=== PATIENT | male | born 1960 | race Caucasian/White ===

== ENCOUNTER 2018-04-19 05:19 | Observation (INO) | payer OTHER ==
[2018-04-17 13:43] VITALS: BMI 27.0
[2018-04-19] VITALS (12 sets, daily range): BP systolic 15–151; BP diastolic 87–102; PULSE 60–74; TEMP 36.3–36.9; O2SAT 94–100; Ht 190.5 cm; Wt 100.9 kg
[~2018-04-19] VITALS: Ht 190.5 cm; Wt 100.9 kg
[~2018-04-19 05:19] MED LIST: AMLO5TAB3 PO; ASPCH81X PO; METR-163 PO
[2018-04-19] MEDS ORDERED: LACTATED RINGER'S 1000ML 1,000 ML IV SCH ×2 (06:00→19:00)
[2018-04-19] MEDS: CEFAZOLIN 2000MG IV PUSH 15 ML IV SCH ×2 (06:22→07:10)
[2018-04-19] MEDS ORDERED: LIDOCAINE HCL 2% 2 ML VIAL (20MG/ML) ONE ×2 (06:40→13:10)
[2018-04-19] MEDS ORDERED: FENTANYL CITRATE INJ 50 MCG/1 ML 2 ML VIAL ONE ×5 (06:40→17:04)
[2018-04-19] MEDS ORDERED: MIDAZOLAM HCL 1 MG/ML 2ML VIAL ONE ×2 (06:40→13:11)
[2018-04-19] MEDS ORDERED: PROPOFOL IV EMULSION 10 MG/ML 20 ML VIAL ONE ×3 (06:40→15:20)
--- NOTE | 2018-04-19 07:02 | History & Physical Bridge Note ---
H&P Re-Evaluation Bridge Note: I have examined the patient, reviewed the History & Physical and in the interval since the performance of the History & Physical I have noted the following changes of clinical significance: No changes noted
[2018-04-19] MEDS ORDERED: ROCURONIUM BROMIDE 10 MG/ML 5 ML VIAL ONE (08:04)
[2018-04-19] MEDS ORDERED: ONDANSETRON INJ 2 MG/ML 2 ML VIAL ONE ×2 (08:04→15:20)
[2018-04-19] MEDS ORDERED: GLYCOPYRROLATE INJ 0.2 MG/ML VIAL ONE (08:08)
[2018-04-19] MEDS ORDERED: NEOSTIGMINE METHYLSULFATE 5 MG/5 ML SYR ONE (08:08)
[2018-04-19] MEDS ORDERED: EpHEDrine SULFATE INJ 50 MG/ML AMP IV PRN ×2 (08:15→17:00)
[2018-04-19] MEDS ORDERED: MEPERIDINE HCL 25 MG/ML CARP IV PRN (08:15)
[2018-04-19] MEDS ORDERED: HYDROmorphone INJ 2 MG/ML SYR/VIAL IV PRN (08:15)
[2018-04-19] MEDS ORDERED: LABETALOL HCL IV 5 MG/ML 20ML IV PRN ×2 (08:15→17:00)
[2018-04-19] MEDS ORDERED: FENTANYL CITRATE INJ 50 MCG/1 ML 2 ML VIAL IV PRN ×2 (08:15→17:00)
[2018-04-19] MEDS ORDERED: NALOXONE HCL 0.4 MG/1 ML VIAL/CARP IV PRN ×2 (08:15→17:00)
[2018-04-19] MEDS ORDERED: BELLADONNA/OPIUM SUPP 60 MG SUPP PR ONE ×2 (08:15→08:38)
[2018-04-19] MEDS ORDERED: FLUMAZENIL 0.1 MG/1 ML 10 ML VIAL IV PRN ×2 (08:15→17:00)
[2018-04-19] MEDS ORDERED: ATROPINE SULFATE 0.1 MG/ML 5ML SYR IV PRN ×2 (08:15→17:00)
[2018-04-19] MEDS ORDERED: PHENYLEPHRINE 100MCG/ML 5ML SYR IV PRN (08:15)
[2018-04-19] MEDS ORDERED: ONDANSETRON INJ 2 MG/ML 2 ML VIAL IV PRN ×2 (08:15→17:00)
--- NOTE | 2018-04-19 08:31 | [facility] Operative Report ---
Operative Report Operative Date Apr 19, 2018. Pre-Operative Diagnosis gross hematuria, malignant neoplasm of lateral wall of bladder Post-Operative Diagnosis same Procedure(s) Performed transurethral resection of bladder tumor, medium, bipolar Surgeon Dr. Sara Morfin [facility] Consultant Surgeon(s) none Estimated Blood Loss 10ml Findings sessile tumors left lateral wall and posterior to the left UO Fluids 800mL Specimens A. left lateral wall bladder tumor Drains 20 fr 3- way wheat Anesthesia Type General Complication(s) none Disposition yes Recovery Room / PACU Indications gross hematuria, tumor found on office cysto Description of Procedure Patient was given general GET anesthesia and placed in lithotomy position. His genitals were prepped and draped in sterile fashion. Time out held with team. I placed a 26 fr rigid resectoscope to bladder. The urethra is unremarkable. The prostate is medium but with very high bladder neck. The scope is angled very posteriorly at camera end to angle up into the bladder. This very acute angle makes irrigation difficult. The UOs are uninvolved with tumor. I used the thin bipolar loop and saline irrigation to resect the multiple left lateral wall and left lateral floor and low posterior wall tumors. They are sessile. They measure about 40mm x 40mm in size. The tumors bleed only a little. They are solid. Some have small amounts of necrosis on their surface. I irrigated out the tumor chips and sent for specimen. I rinsed the bladder copiously. He bleeds briskly from the prostate I cauterized here a bit. I think he will bleed enough from the prostate to need some temporary CBI. I left bladder empty and concluded case. I placed a belladonna and opium suppository for post- op pain. CBI was running clear to light pink. He transferred to recovery under my escort, in stable condition. Plan: Home today Pyridium for dysuria x 3 days oral pain meds as needed run cbi in recovery until discharge ASA 3 clean contaminated case ancef antibiotic quality consultant I attest to the content of the Intraoperative Record and any orders documented therein. Any exceptions are noted below.
[2018-04-19] MEDS ORDERED: PHEN-775 PO (08:39)
--- NOTE | 2018-04-19 08:41 | Discharge Instructions ---
Discharge Instructions Date of Service Apr 19, 2018. Admission Reason for Admission: Bladder Tumor Discharge Discharge Diagnosis / Problem: bladder tumors Discharge Goals Goal(s): Improve disease control Activity Recommendations Activity Limitations: resume your previous activity Lifting Limitations: none Exercise/Sports Limitations: as tolerated Shower/Bathe: no limitations Driving or Machine Use: resume 1 day after discharge may return to work on Tuesday04/22/18 . Instructions / Follow-Up Instructions / Follow-Up if urine is bloody, drink extra fluids to rinse out. Current Hospital Diet Patient's current hospital diet: Discharge Diet Recommended Diet: Regular Diet Procedures Procedures Performed: transurethral resection of bladder tumor, medium, bipolar Pending Studies Studies pending at discharge: yes List of pending studies: biopsy Medical Emergencies . Who to Call and When: Medical Emergencies: If at any time you feel your situation is an emergency, please call 911 immediately. . Non-Emergent Contact Non-Emergency issues call your: Urologist ([phone]) Call Non-Emergent contact if: temperature is above 100.5 . . "Provider Documentation" section prepared by Karma Morfin. .
--- NOTE | 2018-04-19 09:19 | Anesthesiology Progress Note ---
Anesthesia Post Op Note Date & Time Apr 19, 2018 at 09:18 Vital Signs Pain Intensity: 2 Vital Signs Past 12 Hours Date Time Temp Pulse Resp B/P (MAP) Pulse Ox O2 Delivery O2 Flow Rate FiO2 04/19/18 09:10 36.1 60 18 146/96 96 Room Air 04/19/18 09:00 60 18 146/92 97 Room Air 04/19/18 08:50 60 14 134/86 100 Oxymask 10 04/19/18 08:40 60 14 133/84 100 Oxymask 10 04/19/18 08:33 36.2 60 15 137/90 100 Oxymask 10 04/19/18 05:48 36.9 63 18 97 Room Air Notes Mental Status: alert / awake / arousable, participated in evaluation Pt Amnestic to Procedure: Yes Nausea / Vomiting: adequately controlled Pain: adequately controlled Airway Patency, RR, SpO2: stable & adequate BP & HR: stable & adequate Hydration State: stable & adequate Anesthetic Complications: no major complications apparent The patient did well. He is awake and stable in the PACU. He has some redness over his L eyebrow likely from the eye tape. He states that it is starting to feel better.
--- NOTE | 2018-04-19 13:36 | History & Physical Bridge Note ---
H&P Re-Evaluation Bridge Note: Patient went to recovery with CBI running well and urine was very light pink. As he recovered his urine turned frankly bloody. CBI then clotted off and nurses efforts to unclog failed. He was developing painful distention of bladder. I irrigated out a very small amount of clot and unobstructed the cbi port as well. The CBI began to run well again but varied from light pink to light red. I suspect he has had a vessel in one of the tumor beds open up. I would like to take him back to OR to remove any clot and cauterize any bleeding areas. I have a lower threshold for hematuria in him due to his cardiac history. I do not want to allow him to become anemic. I have described problem and return to OR versus further observation. He agrees with return to OR I have explained this unanticipated return to OR is considered a major complication and he will have a formal write up and a letter of apology will be sent to him in the mail. He signed consent and had his questions answered to his satisfaction. He had 2 marie crackers and a half can of irma estrada at 9: 30am so we will wait a few more hours to go back.
[2018-04-19] MEDS ORDERED: CEFAZOLIN SOD 1 GM VIAL ONE (15:37)
[2018-04-19] MEDS ORDERED: PROMETHAZINE HCL INJ 12.5 MG in SODIUM CHLORIDE 0.9% 50ML 50 ML IV PRN (17:00)
--- NOTE | 2018-04-19 17:07 | [facility] Operative Report ---
Operative Report Operative Date Apr 19, 2018. Pre-Operative Diagnosis Clot Retention Post-Operative Diagnosis Clot retention;Prostatic bleeding Procedure(s) Performed cystoscopy clot evacuation, fulguration of prostate, wheat Surgeon Navjot Colon And Rectal Surgeon Surgeon(s) none Estimated Blood Loss 200mL Findings 200mL of soft clot in bladder, no bleeding from the turbt sites, prostate b Fluids 800mL Specimens none per surgeon Drains 22 fr 3- way wheat Anesthesia Type General Complication(s) none Disposition yes Recovery Room / PACU Indications Post-op from TURBT he had brisk hematuria and clotted off his cbi catheter. Bedside irrigation failed. We have elected to go back to OR to remove clot, and find and fulgurate bleeding source. Description of Procedure Patient was given LMA general anesthesia and placed in lithotomy position. His genitals were prepped and draped in sterile fashion. I placed a 26 fr resectoscope to the bladder. There is a medium string of clot in urethra and large clot in bladder. I used Hannah syringe to remove the clot from bladder. I removed about 200mL of clot. I examined the bladder tumor biopsy sites first. None are bleeding. I identified the bleeding as coming diffusely from the prostate. The more brisk bleeding is from anterior prostate. I suspect the acute angulation of the scope this morning caused some trauma here. I used thick loop then button to cauterize this area to control the bleeding. I then left him full and placed a 22 fr 3 -way wheat. I started CBI which was clear. He extubated and transferred to recovery room. I will observe him overnight on CBI. I accompanied him to recovery room. ASA 3e clean contaminated case ancef antibiotic division engineer I attest to the content of the Intraoperative Record and any orders documented therein. Any exceptions are noted below.
--- NOTE | 2018-04-19 17:28 | Anesthesiology Progress Note ---
Anesthesia Post Op Note Date & Time Apr 19, 2018 at 17:27 Vital Signs Pain Intensity: 3 Vital Signs Past 12 Hours Date Time Temp Pulse Resp B/P (MAP) Pulse Ox O2 Delivery O2 Flow Rate FiO2 04/19/18 12:45 16 141/94 97 Room Air 04/19/18 11:43 16 139/95 96 Room Air 04/19/18 11:10 36.5 16 137/95 96 Room Air 04/19/18 10:35 36.5 18 142/102 98 Room Air 04/19/18 10:03 36.3 18 140/94 98 Room Air 04/19/18 09:33 36.3 18 150/95 97 Room Air 04/19/18 09:20 60 18 146/101 95 Room Air 04/19/18 09:10 36.1 60 18 146/96 96 Room Air 04/19/18 09:00 60 18 146/92 97 Room Air 04/19/18 08:50 60 14 134/86 100 Oxymask 10 04/19/18 08:40 60 14 133/84 100 Oxymask 10 04/19/18 08:33 36.2 60 15 137/90 100 Oxymask 10 04/19/18 05:48 36.9 63 18 97 Room Air Notes Mental Status: alert / awake / arousable, participated in evaluation Pt Amnestic to Procedure: Yes Nausea / Vomiting: adequately controlled Pain: adequately controlled Airway Patency, RR, SpO2: stable & adequate BP & HR: stable & adequate Hydration State: stable & adequate Anesthetic Complications: no major complications apparent
[2018-04-19] MEDS ORDERED: IV FLUIDS COMPLETED PRN (18:15)
[2018-04-19] MEDS: PHENAZOPYRIDINE HCL 200 MG TAB PO PRN (20:17)
[2018-04-19] MEDS: ACETAMINOPHEN 325 MG TAB PO PRN (20:20)
[2018-04-19] MEDS: SOTALOL HCL 80 MG TAB PO SCH (20:28)
[2018-04-19] MEDS ORDERED: NURSING VERBAL MED ORDER ONE (21:45)
[2018-04-19] MEDS ORDERED: BELLADONNA/OPIUM SUPP 60 MG SUPP PR PRN (21:45)
[2018-04-20 00:02] VITALS: BP 111/72; PULSE 61; TEMP 36.5; O2SAT 94
[2018-04-20] MEDS: PHENAZOPYRIDINE HCL 200 MG TAB PO PRN ×2 (03:26→13:07)
[2018-04-20] MEDS: ACETAMINOPHEN 325 MG TAB PO PRN (03:27)
[2018-04-20 03:48] VITALS: BP 110/66; PULSE 67; TEMP 37; O2SAT 95
[2018-04-20 07:10] VITALS: BP 139/88; PULSE 76; TEMP 36.9; O2SAT 91
--- NOTE | 2018-04-20 07:45 | Progress Note ---
Subjective Date of Service: Apr 20, 2018. Subjective Pt evaluation today including: conversation w/ patient, physical exam Voiding: wheat catheter in place no problems with cbi overnight. Had some redness to efflux after ambulation and BMs last night but this am no blood at all. Still having burning in prostate urethra. Passed a medium clot last night along side the catheter. Having gas pains in abdomen today. Feels otherwise well. Review of Systems Constitutional: No fever, No chills, No sweats ENT: No sore throat Respiratory: No cough, No shortness of breath Cardiac: No chest pain, No palpitations Male : + dysuria, + hematuria Objective Vital Signs Date Time Temp Pulse Resp B/P (MAP) Pulse Ox O2 Delivery O2 Flow Rate FiO2 04/20/18 07:10 36.9 76 15 139/88 (105) 91 Room Air 04/20/18 03:48 37.0 67 19 110/66 (81) 95 Room Air 04/20/18 00:02 36.5 61 18 111/72 (85) 94 Room Air 04/19/18 23:30 Room Air 04/19/18 20:24 36.5 71 18 151/93 (112) 96 Room Air 04/19/18 19:47 36.8 70 18 142/93 (109) 94 Room Air 04/19/18 19:11 36.5 65 18 144/88 (106) 95 Room Air 04/19/18 18:25 36.4 60 18 142/89 (106) 96 Room Air 04/19/18 17:50 36.4 74 16 135/87 (103) 100 Nasal Cannula 2.0 04/19/18 17:50 100 Nasal Cannula 2.0 04/19/18 17:50 100 Nasal Cannula 2.0 04/19/18 17:35 36.4 60 16 135/87 100 Nasal Cannula 2 04/19/18 17:25 60 16 139/98 99 Nasal Cannula 2 04/19/18 17:15 60 15 141/96 100 Nasal Cannula 2 04/19/18 17:05 60 12 136/90 99 Oxymask 10 04/19/18 16:55 36.6 60 15 132/86 100 Oxymask 10 04/19/18 16:49 36.6 60 14 130/86 99 Oxymask 10 04/19/18 12:45 16 141/94 97 Room Air 8/15/18 11:43 16 139/95 96 Room Air 04/19/18 11:10 36.5 16 137/95 96 Room Air 04/19/18 10:35 36.5 18 142/102 98 Room Air 04/19/18 10:03 36.3 18 140/94 98 Room Air 04/19/18 09:33 36.3 18 150/95 97 Room Air 04/19/18 09:20 60 18 146/101 95 Room Air 04/19/18 09:10 36.1 60 18 146/96 96 Room Air 04/19/18 09:00 60 18 146/92 97 Room Air 04/19/18 08:50 60 14 134/86 100 Oxymask 10 04/19/18 08:40 60 14 133/84 100 Oxymask 10 04/19/18 08:33 36.2 60 15 137/90 100 Oxymask 10 Physical Exam General Appearance: WD/WN, no apparent distress ENT: hearing grossly normal Respiratory/Chest: no respiratory distress Extremities: + pertinent finding (we ambulated the length of the hensley twice, no difficulty) Neurologic/Psychiatric: alert, normal mood/affect, oriented x 3 Skin: normal color, warm/dry, no rash Comments: wheat in placed with scant blood along side catheter. Has cbi running very slow drip and efflux is yellow pyridium stained. Assessment and Plan bladder cancer POD#1 turbt path pending clot retention- upon return to OR was found to be prostate bleeding in origin. Was fulgurated and the CBI seems to have kept him clear. We will cap the CBI port and observe another 2-3 hours. If still clear then discharge linda with wheat for one more day. If bloody again restart CBI. HTN- on home regimen meds. Continued [facility] stay due to: voiding difficulties Discharge planning: home
[2018-04-20] MEDS: SOTALOL HCL 80 MG TAB PO SCH (08:04)
[2018-04-20] MEDS ORDERED: AMLODIPINE BESYLATE 5 MG TAB PO SCH (09:00)
--- NOTE | 2018-04-20 10:12 | Anesthesiology Progress Note ---
Anesthesia Post Op Note Date & Time Apr 20, 2018 at 10:12 Vital Signs Pain Intensity: 3.0 Vital Signs Past 12 Hours Date Time Temp Pulse Resp B/P (MAP) Pulse Ox O2 Delivery O2 Flow Rate FiO2 04/20/18 07:10 36.9 76 15 139/88 (105) 91 Room Air 04/20/18 03:48 37.0 67 19 110/66 (81) 95 Room Air 04/20/18 00:02 36.5 61 18 111/72 (85) 94 Room Air 04/19/18 23:30 Room Air Notes Mental Status: alert / awake / arousable, participated in evaluation Pt Amnestic to Procedure: Yes Nausea / Vomiting: adequately controlled Pain: adequately controlled Airway Patency, RR, SpO2: stable & adequate BP & HR: stable & adequate Hydration State: stable & adequate Anesthetic Complications: no major complications apparent
[2018-04-20 10:34] VITALS: BP 107/69; PULSE 71; TEMP 36.8; O2SAT 91
--- NOTE | 2018-04-20 11:56 | Discharge Instructions ---
Discharge Instructions Date of Service Apr 20, 2018. Admission Reason for Admission: Clot Retention Of Urine Discharge Discharge Diagnosis / Problem: clot retention Discharge Goals Goal(s): Improve function Activity Recommendations Activity Limitations: per Instructions/Follow-up section Lifting Limitations: no more than 25 pounds (for the next 5 days ) . Instructions / Follow-Up Instructions / Follow-Up remove the wheat catheter tomorrow at home at 10am. Cut the balloon port and allow water to drain out. Slide catheter out slowly expect some bleeding after cath removal. call office [phone] with any problems Current Hospital Diet Patient's current hospital diet: AHA Diet (Heart Healthy) Discharge Diet Recommended Diet: AHA Diet (Heart Healthy) Fluid Restriction: None Procedures Procedures Performed: Cystoscopy; clot evacuation;cautery of prostate Pending Studies Studies pending at discharge: yes List of pending studies: bladder biposies Medical Emergencies . Who to Call and When: Medical Emergencies: If at any time you feel your situation is an emergency, please call 911 immediately. . Non-Emergent Contact Non-Emergency issues call your: Urologist ([phone]) Call Non-Emergent contact if: temperature is above 100.5 . . "Provider Documentation" section prepared by Karma Morfin. .
--- NOTE | 2018-04-20 12:33 | Discharge Summary ---
Discharge Summary Date of Service Apr 20, 2018. Discharge Summary Admission Date: Apr 19, 2018 at 16:57 Discharge Date: Apr 20, 2018 Discharge Disposition: Home Principal Diagnosis: clot retention Procedures: TURBT morning 04/19/18 then Cysto clot evacuation with fulguration of prostate afternoon 04/19/18 Pending Studies/Follow-Up: bladder biposy path pending Medication Reconciliation New Medications: Phenazopyridine Hcl (Pyridium) 200 Mg Tab 200 MG PO TID PRN for Bladder pain, #9 TAB Continued Medications: Amlodipine (Norvasc) 5 Mg Tab 5 MG PO QAM, TAB Aspirin (Aspirin Chewable) 81 Mg Chew 81 MG PO QPM, TAB Fish Oil (Magnolia-3) 1 Ea Cap 1 CAP PO QPM, CAP Metronidazole (Flagyl) 500 Mg Tab 500 MG PO BID, TAB Sotalol Hcl (Sotalol Hcl) 80 Mg Tab 40 MG PO BID, TAB Admission Information HPI (per Admitting provider): Patient had planned day surgery TURBT. He was sent to recovery room for a few hours of CBI to control some prostate bleeding. He began to bleed briskly in recovery about 2 hours after surgery and clotted of the catheter. He was taken back [facility] and had clot evacuated from bladder and prostate cuaterized. He was kept overnight for CBI and did well. Physical Exam (per Admitting): Tall thin ext- has varicose veins in legs, Chest- no respiratory distress, no accessory muscle use oriented x 3 Hospital Course Patient had planned day surgery TURBT. He was sent to recovery room for a few hours of CBI to control some prostate bleeding. He began to bleed briskly in recovery about 2 hours after surgery and clotted of the catheter. He was taken back [facility] and had clot evacuated from bladder and prostate cuaterized. He was kept overnight for CBI and did well. Irrigation was discontinued on 04/20/18 and he did not rebleed. He was discharged with wheat Total time spent on discharge = 30 minutes This includes examination of the patient, discharge planning, medication reconciliation, and communication with other providers. Discharge Instructions remove catheter mid morning tomorrow take pyridium prn burning we will call with path results and follow up visits Additional Copies To Germaine Thomason D.O.
[2018-04-20 14:11] VITALS: BP 107/69; PULSE 71; TEMP 36.8; O2SAT 91
[2018-04-26] MEDS ORDERED: SOTA80TA PO (13:42)
[2018-04-26] MEDS ORDERED: OMEG10007 PO (13:42)
[2018-04-28] MEDS ORDERED: PROBCAP3 OR (10:54)
== END 2018-04-20 15:06 | disposition home or self-care (01) ==
LOC: C.ACU 05:19 → C.MSW 16:57 → ENRESERV 17:19
PROVIDERS: ADMIT Urology; ATTEND Urology
DX: C67.2 Malignant neoplasm of lateral wall of bladder (principal); N32.89 Other specified disorders of bladder; I25.10 Atherosclerotic heart disease of native coronary artery without angina pectoris; I10 Essential (primary) hypertension; K51.90 Ulcerative colitis, unspecified, without complications; I25.2 Old myocardial infarction; Z95.0 Presence of cardiac pacemaker; Z87.891 Personal history of nicotine dependence; Z79.82 Long term (current) use of aspirin

== ENCOUNTER 2018-04-26 15:09 | Observation (INO) | payer OTHER ==
[~2018-04-26] VITALS: Ht 190.5 cm; Wt 96.9 kg
[~2018-04-26 15:09] MED LIST changes: +OMEG10007 PO; +PHEN-775 PO; +SOTA80TA PO
[2018-04-26] MEDS ORDERED: SODIUM CHLORIDE 0.9% 1000ML 500 ML IV STA (15:41)
[2018-04-26] MEDS ORDERED: OPTIRAY 320 IV PRN (15:45)
[2018-04-26 16:03] LABS: BASO % 1.2 %; BASO ABS # 0.09 K/uL (0-0.2); EOS % 4.4 %; EOS ABS # 0.34 K/uL (0-0.5); HEMATOCRIT 42.5 % (42-52); HEMOGLOBIN 15.2 g/dL (14.0-18.0); IG# 0.08 K/uL (0.00-0.02); LYMPH % 24.4 %; LYMPH ABS # 1.89 K/uL (1.2-3.4); MEAN CELL VOLUME 88.9 fL (80-100); MEAN CORPUSCULAR HEMOGLOBIN 31.8 pg (25-34); MEAN CORPUSCULAR HGB CONC 35.8 g/dl (32-36); MEAN PLATELET VOLUME 9.1 fL (7.4-10.4); MONO % 8.2 %; MONO ABS # 0.64 K/uL (0.11-0.59); NEUT % 60.8 %; NEUT ABS # 4.72 K/uL (1.4-6.5); PLATELET COUNT 260 K/uL (130-400); RED CELL DISTRIBUTION WIDTH CV 14.2 % (11.5-14.5); RED CELL DISTRIBUTION WIDTH SD 46.2 fL (36.4-46.3); WHITE BLOOD COUNT 7.76 K/uL (4.8-10.8)
[2018-04-26 16:11] LABS: PTT PATIENT 24.1 SECONDS (21.0-31.0)
[2018-04-26 16:22] LABS: ALBUMIN 3.8 gm/dl (3.4-5.0); CALCIUM 9.7 mg/dl (8.5-10.1); CREATININE 1.01 mg/dl (0.60-1.40); POTASSIUM 4.5 mmol/L (3.5-5.1); TOTAL PROTEIN 9.1 gm/dl (6.4-8.2)
[2018-04-26] MEDS ORDERED: MTR500 PO (16:54)
[2018-04-26] MEDS ORDERED: NRV/5 PO (16:54)
[2018-04-26] MEDS ORDERED: ASPI81TA28 PO (16:55)
--- NOTE | 2018-04-26 17:31 | DIAGNOSTIC IMAGING REPORT ---
ABD/PELVIS IV CONTRAST ONLY CLINICAL HISTORY: 58 years-old Male presenting with ABD PAIN, POSS OBSTRUCTION, IV CONTRAST ONLY. TECHNIQUE: Multidetector CT of the abdomen and pelvis was performed after the administration of oral and intravenous contrast. IV contrast: 115 mL of Optiray 320. A dose lowering technique was used consistent with the principles of ALARA (as low as reasonably achievable). COMPARISON: None. CT DOSE (mGy.cm): The estimated cumulative dose is 461.71 mGy.cm. FINDINGS: Applications Consultant topogram: Surgical clips project over the pelvis, possibly indicating prostatectomy. Pacer wire projects over the right ventricle. Prosthetic aortic valve. Median sternotomy wires. Lung bases: Dependent consolidation and bandlike opacity in the posterior basal right lower lobe, possibly cicatrizing atelectasis. Dependent changes in the left lung suggests atelectasis. Solid 4 mm left lower lobe nodule (series 3 image 30). Punctate subpleural solid right lower lobe nodule (series 3 image 21). A pacer wire enters the right ventricular apex and a transmyocardial approach from the pericardial fat. Normal heart size. No pericardial or pleural effusion. Liver: Normal morphology. No liver lesion. Small portal vein aneurysm or flash filling hemangioma suggested in segment 8 (series 3 image 43). Patent hepatic vasculature. Biliary: No intrahepatic or extrahepatic biliary ductal dilatation. Gallbladder decompressed. Pancreas: Normal. Spleen: Normal. Adrenal glands: Normal. Kidneys and ureters: Normal. Few small subcentimeter hypodensities likely cysts. No hydronephrosis. Ureters nondistended. Bladder: Incompletely evaluated secondary to underdistention. Pelvic organs: Evidence of a transurethral resection of the prostate defect. Prostate enlarged. 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 Moderate stool burden in the pouch. A diverticulum or blind-ending of a section of the pouch is noted (series 3 image 329). No associated inflammatory change. The bowel upstream to the pouch is only mildly distended. There is slight wall thickening at the proximal most portion of the pouch (series 3 image 317). No complete bowel obstruction. A second anastomosis is evident in the right mid abdomen. No upstream distention to suggest obstruction at this site. Peritoneal cavity: No free fluid or intraperitoneal gas. Lymph nodes: No enlarged lymph nodes in the abdomen or pelvis. Vasculature: Atherosclerosis of the normal caliber abdominal aorta. IVC patent. Abdominal wall: Postsurgical changes of the infraumbilical abdominal wall. Musculoskeletal: Degenerative changes of the spine. Bilateral pars defects of L5 with osseous neural foraminal narrowing of L5-S1. IMPRESSION: 1. Postsurgical changes of total proctocolectomy. With ileal pouch anal anastomosis. Moderate stool burden in the pouch could suggest a partial low-grade or functional obstruction at the anal anastomosis. Additionally, small bowel wall thickening at the proximal most portion of the pouch suggest mild pouchitis or a stricture given the mild upstream small bowel distention. No complete bowel obstruction. The more proximal small bowel anastomosis is patent. 2. Evidence of prior TURP with prostatomegaly. 3. Solid 4 mm left lower lobe pulmonary nodule. Follow-up per Donnie Society 2017 recommendations below. Please refer to below summary of Fleischner Society 2017 recommendations for follow-up of incidental CT nodules (H Betty, et al. Guidelines for management of incidental pulmonary nodules detected on CT images: From the Fleischner Society 2017. Radiology 2017; 284: 228-243.) SOLID NODULES Single nodule; size < 6 mm * Low risk patients: No routine follow-up * High risk patients: Optional CT at 12 months Single nodule; size 6-8 mm * Low risk patients: CT at 6-12 months, then consider CT at 18-24 months * High risk patients: CT at 6-12 months, then at 18-24 months Single nodule; size > 8 mm * Either low or high risk patients: Considered CT at 3 months, PET/CT, or tissue sampling Multiple nodules; size < 6 mm * Low risk patients: No routine follow up * High risk patients: Optional CT at 12 months Multiple nodules; size 6-8 mm * Low risk patients: CT at 3-6 months, then consider CT at 18-24 months * High risk patients: CT at 3-6 months, then at 18-24 months Multiple nodules; size > 8 mm * Low risk patients: CT at 3-6 months, then consider at 18-24 months * High risk patients: CT at 3-6 months, then at 18-24 months SUBSOLID NODULES Single ground-glass nodule * Nodule size < 6 mm: No routine follow-up * Nodule size > or = 6 mm: CT at 6-12 months to confirm persistence, then CT every 2 years until 5 years Single part-solid nodule * Nodule size < 6 mm: No routine follow-up * Nodules size > or = 6 mm: CT at 3-6 months to confirm persistence. If unchanged and solid component remains < 6 mm, annual CT should be performed for 5 years Multiple nodules * Nodule size < 6 mm: CT at 3-6 months. If stable, consider CT at 2 and 4 years. * Nodules size > or = 6 mm: CT at 3-6 months. Subsequent management based on the most suspicious nodule(s) NOTE: 1) These guidelines apply to incidental nodules. These guidelines do NOT apply to patients younger than 35 years, immunocompromised patients, or patients with cancer. 2) Risk categories: * Low risk patients: Minimal or absent history of smoking and/or other known risk factors * High risk patients: History of smoking, exposure to other carcinogens, emphysema, fibrosis, upper lobe location, family history of lung cancer, etc. 3) If a nodule up to 8 mm is partly solid or is ground glass, further follow-up is required after 24 months to exclude possible slow growing adenocarcinoma. Electronically signed by: Anthony Lawton M.D. 04/26/2018 5:30 PM Dictated Date/Time: 04/26/2018 5:10 PM
[2018-04-26] MEDS ORDERED: ACETAMINOPHEN 325 MG TAB PO PRN (18:30)
[2018-04-26] MEDS ORDERED: ONDANSETRON INJ 2 MG/ML 2 ML VIAL IV PRN (18:30)
[2018-04-26 18:41] VITALS: O2SAT 98; BMI 26.7
--- NOTE | 2018-04-26 18:42 | EMERGENCY ROOM VISIT NOTE ---
History Report prepared by Basilio: Ventura Porras Under the Supervision of: Dr. Sammy Austin M.D. First contact with patient: 15:36 Chief Complaint: REFERRED BY DOCTOR Stated Complaint: BOWERL OBSTRUCTION History of Present Illness The patient is a 58 year old male who presents to the Emergency Room after being sent by his doctor for a possible bowel obstruction with persistent abdominal pain. The patient reports that he had all of his large intestine removed several years ago and has been experiencing flare-ups every 3 or 4 years since. He states that 6 or 7 years ago he had a fistula removed, and notes his flare-ups have been more frequent since then. He reports that 7 days ago on this past Tuesday, he was admitted to the hospital, diagnosed with bladder cancer, underwent surgery, and left at 15:00 on . The patient states that he has since been experiencing abdominal pain, with the severity being 4/10 at its worst. He reports that he received an X-ray this week, and was instructed to report to the ER. He reports that he has been passing gas and having bowel movements, but notes that he is eating less. He states that there is some burning with urination, and notes that today he felt like he was " peeing himself." He reports that he has been intermittently been experiencing hot flashes and chills. He states that he has also been feeling nauseous and vomited 3-4 times four nights ago. The patient reports that he has a pacemaker. He states that he is currently on Flagyl. Source of History: patient Onset: referred to ER today Position: abdomen Symptom Intensity: 4/10 at worst Quality: other (abdominal pain) Timing: other (persistent) Associated Symptoms: + chills, + nausea, + vomiting (3 or 4 nights ago), + urinary symptoms (burning with urination, today felt like he was "peeing himself ") Review of Systems See HPI for pertinent positives & negatives. A total of 10 systems reviewed and were otherwise negative. Past Medical & Surgical Medical Problems: (1) Asthma (2) Bladder cancer (3) Clot retention of urine (4) Constipation (5) Hypertension (6) Pacemaker (7) Pouchitis (8) Pulmonary embolism Family History non-contributory Social History Smoking Status: Former Smoker Alcohol Use: occasionally Current/Historical Medications Scheduled Amlodipine Besylate (Amlodipine Besylate), 5 MG PO QAM Aspirin (Aspirin Ec), 81 MG PO QPM Fish Oil ([place]-3), 1 CAP PO QPM Metronidazole (Metronidazole), 500 MG PO BID Sotalol Hcl (Sotalol Hcl), 40 MG PO BID Scheduled PRN Phenazopyridine Hcl (Pyridium), 200 MG PO TID PRN for Bladder pain Allergies Coded Allergies: Atorvastatin (Verified Allergy, Intermediate, HIVES, 04/19/18) Plasma Protein Fraction (Verified Allergy, Intermediate, RASH, 04/19/18) Mesalamine (Verified Adverse Reaction, Intermediate, GI SYMPTOMS, 04/19/18) Physical Exam Vital Signs Date Time Temp Pulse Resp B/P (MAP) Pulse Ox O2 Delivery O2 Flow Rate FiO2 04/26/18 17:24 66 18 118/68 98 Room Air 04/26/18 15:28 36.6 75 20 122/86 98 Room Air Physical Exam GENERAL: Patient is in no acute distress. HEENT: No acute trauma, normocephalic atraumatic, mucous membranes moist, no nasal congestion, no scleral icterus. NECK: No stridor, no adenopathy, no meningismus, trachea is midline. LUNGS: Clear to auscultation bilaterally, no wheeze, no rhonchi, breath sounds equal. HEART: Without murmurs gallops or rubs, regular rate and rhythm. ABDOMEN: Soft, tender in mid-lower abdomen/pelvis and right lower quadrant, bowel sounds positive, no hernias, no peritonitis. EXTREMITIES: No cyanosis or edema, full range of motion of all the joints without pain or difficulty, no signs for acute trauma. NEUROLOGIC: Oriented x 3, no acute motor or sensory deficits, no focal weakness. SKIN: No rash, no jaundice, no diaphoresis. Medical Decision & Procedures ER Provider Diagnostic Interpretation: Radiology results as stated below per my review and radiologist interpretation: ABD/PELVIS IV CONTRAST ONLY CLINICAL HISTORY: 58 years-old Male presenting with ABD PAIN, POSS OBSTRUCTION, IV CONTRAST ONLY. TECHNIQUE: Multidetector CT of the abdomen and pelvis was performed after the administration of oral and intravenous contrast. IV contrast: 115 mL of Optiray 320. A dose lowering technique was used consistent with the principles of ALARA (as low as reasonably achievable). COMPARISON: None. CT DOSE (mGy.cm): The estimated cumulative dose is 461.71 mGy.cm. FINDINGS: [employer] topogram: Surgical clips project over the pelvis, possibly indicating prostatectomy. Pacer wire projects over the right ventricle. Prosthetic aortic valve. Median sternotomy wires. Lung bases: Dependent consolidation and bandlike opacity in the posterior basal right lower lobe, possibly cicatrizing atelectasis. Dependent changes in the left lung suggests atelectasis. Solid 4 mm left lower lobe nodule (series 3 image 30). Punctate subpleural solid right lower lobe nodule (series 3 image 21). A pacer wire enters the right ventricular apex and a transmyocardial approach from the pericardial fat. Normal heart size. No pericardial or pleural effusion. Liver: Normal morphology. No liver lesion. Small portal vein aneurysm or flash filling hemangioma suggested in segment 8 (series 3 image 43). Patent hepatic vasculature. Biliary: No intrahepatic or extrahepatic biliary ductal dilatation. Gallbladder decompressed. Pancreas: Normal. Spleen: Normal. Adrenal glands: Normal. Kidneys and ureters: Normal. Few small subcentimeter hypodensities likely cysts. No hydronephrosis. Ureters nondistended. Bladder: Incompletely evaluated secondary to underdistention. Pelvic organs: Evidence of a transurethral resection of the prostate defect. Prostate enlarged. 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 Moderate stool burden in the pouch. A diverticulum or blind-ending of a section of the pouch is noted (series 3 image 329). No associated inflammatory change. The bowel upstream to the pouch is only mildly distended. There is slight wall thickening at the proximal most portion of the pouch (series 3 image 317). No complete bowel obstruction. A second anastomosis is evident in the right mid abdomen. No upstream distention to suggest obstruction at this site. Peritoneal cavity: No free fluid or intraperitoneal gas. Lymph nodes: No enlarged lymph nodes in the abdomen or pelvis. Vasculature: Atherosclerosis of the normal caliber abdominal aorta. IVC patent. Abdominal wall: Postsurgical changes of the infraumbilical abdominal wall. Musculoskeletal: Degenerative changes of the spine. Bilateral pars defects of L5 with osseous neural foraminal narrowing of L5-S1. IMPRESSION: 1. Postsurgical changes of total proctocolectomy. With ileal pouch anal anastomosis. Moderate stool burden in the pouch could suggest a partial low-grade or functional obstruction at the anal anastomosis. Additionally, small bowel wall thickening at the proximal most portion of the pouch suggest mild pouchitis or a stricture given the mild upstream small bowel distention. No complete bowel obstruction. The more proximal small bowel anastomosis is patent. 2. Evidence of prior TURP with prostatomegaly. 3. Solid 4 mm left lower lobe pulmonary nodule. Follow-up per Donnie Society 2017 recommendations below. Please refer to below summary of Fleischner Society 2017 recommendations for follow-up of incidental CT nodules (Melanie Hernández et al. Guidelines for management of incidental pulmonary nodules detected on CT images: From the Fleischner Society 2017. Radiology 2017; 284: 228-243.) SOLID NODULES Single nodule; size < 6 mm * Low risk patients: No routine follow-up * High risk patients: Optional CT at 12 months Single nodule; size 6-8 mm * Low risk patients: CT at 6-12 months, then consider CT at 18-24 months * High risk patients: CT at 6-12 months, then at 18-24 months Single nodule; size > 8 mm * Either low or high risk patients: Considered CT at 3 months, PET/CT, or tissue sampling Multiple nodules; size < 6 mm * Low risk patients: No routine follow up * High risk patients: Optional CT at 12 months Multiple nodules; size 6-8 mm * Low risk patients: CT at 3-6 months, then consider CT at 18-24 months * High risk patients: CT at 3-6 months, then at 18-24 months Multiple nodules; size > 8 mm * Low risk patients: CT at 3-6 months, then consider at 18-24 months * High risk patients: CT at 3-6 months, then at 18-24 months SUBSOLID NODULES Single ground-glass nodule * Nodule size < 6 mm: No routine follow-up * Nodule size > or = 6 mm: CT at 6-12 months to confirm persistence, then CT every 2 years until 5 years Single part-solid nodule * Nodule size < 6 mm: No routine follow-up * Nodules size > or = 6 mm: CT at 3-6 months to confirm persistence. If unchanged and solid component remains < 6 mm, annual CT should be performed for 5 years Multiple nodules * Nodule size < 6 mm: CT at 3-6 months. If stable, consider CT at 2 and 4 years. * Nodules size > or = 6 mm: CT at 3-6 months. Subsequent management based on the most suspicious nodule(s) NOTE: 1) These guidelines apply to incidental nodules. These guidelines do NOT apply to patients younger than 35 years, immunocompromised patients, or patients with cancer. 2) Risk categories: * Low risk patients: Minimal or absent history of smoking and/or other known risk factors * High risk patients: History of smoking, exposure to other carcinogens, emphysema, fibrosis, upper lobe location, family history of lung cancer, etc. 3) If a nodule up to 8 mm is partly solid or is ground glass, further follow-up is required after 24 months to exclude possible slow growing adenocarcinoma. Electronically signed by: Anthony Lawton M.D. 04/26/2018 5:30 PM Dictated Date/Time: 04/26/2018 5:10 PM Laboratory Results 04/26/18 15:54 Red Blood Count 4.78, Mean Corpuscular Volume 88.9, Mean Corpuscular Hemoglobin 31.8, Mean Corpuscular Hemoglobin Concent 35.8, Mean Platelet Volume 9.1, Neutrophils (%) (Auto) 60.8, Lymphocytes (%) (Auto) 24.4, Monocytes (%) (Auto) 8.2, Eosinophils (%) (Auto) 4.4, Basophils (%) (Auto) 1.2, Neutrophils # (Auto) 4.72, Lymphocytes # (Auto) 1.89, Monocytes # (Auto) 0.64, Eosinophils # (Auto) 0.34, Basophils # (Auto) 0.09 04/26/18 15:54 Test 04/26/18 15:54 04/26/18 16:31 White Blood Count 7.76 K/uL (4.8-10.8) Red Blood Count 4.78 M/uL (4.7-6.1) Hemoglobin 15.2 g/dL (14.0-18.0) Hematocrit 42.5 % (42-52) Mean Corpuscular Volume 88.9 fL (80-100) Mean Corpuscular Hemoglobin 31.8 pg (25-34) Mean Corpuscular Hemoglobin Concent 35.8 g/dl (32-36) Platelet Count 260 K/uL (130-400) Mean Platelet Volume 9.1 fL (7.4-10.4) Neutrophils (%) (Auto) 60.8 % Lymphocytes (%) (Auto) 24.4 % Monocytes (%) (Auto) 8.2 % Eosinophils (%) (Auto) 4.4 % Basophils (%) (Auto) 1.2 % Neutrophils # (Auto) 4.72 K/uL (1.4-6.5) Lymphocytes # (Auto) 1.89 K/uL (1.2-3.4) Monocytes # (Auto) 0.64 K/uL (0.11-0.59) Eosinophils # (Auto) 0.34 K/uL (0-0.5) Basophils # (Auto) 0.09 K/uL (0-0.2) RDW Standard Deviation 46.2 fL (36.4-46.3) RDW Coefficient of Variation 14.2 % (11.5-14.5) Immature Granulocyte % (Auto) 1.0 % Immature Granulocyte # (Auto) 0.08 K/uL (0.00-0.02) Prothrombin Time 10.5 SECONDS (9.0-12.0) Prothromb Time International Ratio 1.0 (0.9-1.1) Activated Partial Thromboplast Time 24.1 SECONDS (21.0-31.0) Partial Thromboplastin Ratio 0.9 Anion Gap 7.0 mmol/L (3-11) Est Creatinine Clear Calc Drug Dose 96.4 ml/min Estimated GFR () 95.3 Estimated GFR (Non- 82.2 BUN/Creatinine Ratio 22.5 (10-20) Calcium Level 9.7 mg/dl (8.5-10.1) Magnesium Level 2.3 mg/dl (1.8-2.4) Total Bilirubin 0.7 mg/dl (0.2-1) Aspartate Amino Transf (AST/SGOT) 22 U/L (15-37) Alanine Aminotransferase (ALT/SGPT) 25 U/L (12-78) Alkaline Phosphatase 141 U/L (45-117) Total Protein 9.1 gm/dl (6.4-8.2) Albumin 3.8 gm/dl (3.4-5.0) Globulin 5.3 gm/dl (2.5-4.0) Albumin/Globulin Ratio 0.7 (0.9-2) Lipase 166 U/L (73-393) Urine Color DK YELLOW Urine Appearance CLEAR (CLEAR) Urine pH 5.0 (4.5-7.5) Urine Specific [place] 1.023 (1.000-1.030) Urine Protein 2+ (NEG) Urine Glucose (UA) NEG (NEG) Urine Ketones NEG (NEG) Urine Occult Blood 3+ (NEG) Urine Nitrite NEG (NEG) Urine Bilirubin NEG (NEG) Urine Urobilinogen NEG (NEG) Urine Leukocyte Esterase MODERATE (NEG) Urine WBC (Auto) >30 /hpf (0-5) Urine RBC (Auto) >30 /hpf (0-4) Urine Hyaline Casts (Auto) 1-5 /lpf (0-5) Urine Epithelial Cells (Auto) 10-20 /lpf (0-5) Urine Bacteria (Auto) NEG (NEG) Laboratory results reviewed by me. Medications Administered Medications (Trade) Dose Ordered Sig/Higinio Route Start Time Stop Time Status Last Admin Dose Admin Sodium Chloride 500 ml @ 999 mls/hr Q31M STAT IV 04/26/18 15:41 04/26/18 16:11 DC 04/26/18 15:41 999 MLS/HR ECG Per My Interpretation Indication: abdominal pain Rate (beats per minute): 83 Rhythm: other (AV pacemaker) Findings: other (LVH. No PVCs.) ED Course 1537: The patient was evaluated in room B7. A complete history and physical exam was performed. 1541: Ordered Sodium Chloride 500 ml @ 999 mls/hr IV 1747: I consulted Dr. Tavon WELDON. He recommends a stool sample for C-Diff and blood cultures. 175: I consulted Beba Atwood PA-C: [facility] Hospitalist. She will reevaluate the patient for hospitalization. Medical Decision Differential diagnosis: UTI, bladder rupture, pouchitis, bowel obstruction, ileus, electrolyte imbalance, anemia, post surgical pain There is no leukocytosis or worrisome anemia. No significant electrolyte abnormality, kidney failure or hepatitis. Urinalysis shows possible infection versus changes just from the recent bladder surgery. Urine culture and blood cultures are pending. Stool C. difficile testing is pending. Abdominal and pelvis CT shows pouchitis with some stool in the pouch causing a potential partial bowel obstruction. No evidence for abscess, no free air seen. No surgical bowel obstruction seen. EKG shows an AV pacemaker. There was no pancreatitis. The patient received IV saline. He has been resting fairly comfortably. I spoke with GI, a hospital stay/observation was advised given his findings and recent history. I did speak with the patient and case management. The on-call hospitalist was counseled. The cause for all his symptoms at this point is not clear, further workup is warranted. Medication Reconcilliation Current Medication List: was personally reviewed by me Blood Pressure Screening Patient's blood pressure: Normal blood pressure Blood pressure disposition: Did not require urgent referral Consults Time Called: 173 Consulting Physician: Dr. Tavon WELDON Returned Call: [address] Tavon WELDON. He recommends a stool sample for C-Diff and blood cultures. Additional Consults: Time Called: 175 Consulted Physician: Beba Atwood PA-C: [facility] Returned Call: 175 Additional Comments: I consulted Beba Atwood PA-C: [facility]. She will reevaluate the patient for hospitalization. Impression Primary Impression: Lower abdominal pain Additional Impressions: Pouchitis Partial bowel obstruction Scribe Attestation The scribe's documentation has been prepared under my direction and personally reviewed by me in its entirety. I confirm that the note above accurately reflects all work, treatment, procedures, and medical decision making performed by me. Departure Information Dispostion Being Evaluated By Hospitalist Referrals Germaine Thomason D.O. (PCP) Patient Instructions My [facility] Problem Qualifiers
[2018-04-26] MEDS ORDERED: IV FLUIDS COMPLETED PRN (19:00)
[2018-04-26 19:54] VITALS: BP 146/97; PULSE 61; TEMP 36.6; O2SAT 96
--- NOTE | 2018-04-26 20:25 | History and Physical ---
History & Physical Date & Time of Service: Apr 26, 2018 at 19:59 Chief Complaint: Constipation,Pouchitis Primary Care Physician: Germaine Thomason D.O. History of Present Illness This is a 58 year old male with significant PMH of IBD-ulcerative colitis, hx of total proctocolectomy with ileal-anal anastomosis, Afib, hx of AVR, hx of pacemaker, HTN, s/p TURBT on 04/19/[address] Morfin who presents to [facility] secondary to abdominal discomfort, increased flatus x 2 days. Also of note patient currently taking flagyl 500mg po bid until 04/29 for Pouchitis. Patient states ever since being discharged s/p TURBT he has had increased abdominal distention and pain. Pain located in lower abdomen, constant, waxes and wanes in severity, 3/10 at worse. Symptoms made better with pepto bismal, imodium and made worse with increased gas and laying on right side. Had similar sx in past. Last BM was few minutes prior to our visit, he state it was like, "cow geremias," which is usual for him. Pain has lessened. Last meal was at 7am this a.m. No appetite. Denies f/c/s, chest pain, sob, dizziness, lightheaded, emesis, diarrhea. He does get occasional dysuria since procedure. He states he is to go to [facility] for possible bladder resection. In ED CBC unremarkable, BMP revealed sodium 135, BUN 23, current 1.01, glucose 108, alk phos 141. CT scan of the pelvis showed Moderate stool burden in the pouch which suggest a partial obstruction at the anal anastomosis as well as pouchitis. Blood and stool cultures still pending. Past Medical/Surgical History Medical Problems: (1) Asthma Status: Chronic (2) Atrial fibrillation Status: Chronic (3) Bladder cancer Status: Chronic (4) BPH (benign prostatic hyperplasia) Status: Chronic (5) History of cardiac pacemaker in situ Status: Chronic (6) Hypertension Status: Chronic (7) Inflammatory bowel diseases (IBD) Status: Chronic (8) Pacemaker Status: Chronic Surgical Problems: (1) History of aortic valve replacement Permanent Comment: x 2, 01/02/13 and 01/08/13, bio prosthetic Status: Chronic (2) History of ileostomy Permanent Comment: s/p reversal Status: Chronic (3) History of pacemaker Status: Chronic (4) History of pneumothorax Status: Chronic (5) History of total colectomy Permanent Comment: total proctocolectomy, with ileo-anal anastomosis Status: Chronic (6) history of TURBT Permanent Comment: 04/19/18 Dr Morfin, INVASIVE HIGH-GRADE UROTHELIAL CARCINOMA Status: Chronic (7) Hx of rotator cuff surgery Permanent Comment: x 2 Status: Chronic Family History FH: CAD (coronary artery disease) FATHER FH: cancer MOTHER FH: liver cancer GRANDMOTHER Social History Smoking Status: Former Smoker (quit in 1987) Smokeless Tobacco Use: Yes (quit in 2012) Alcohol Use: rarely, special occassions like holidays Drug Use: none Marital Status: Housing status: lives with significant other Immunizations History of Influenza Vaccine: Unknown History of Tetanus Vaccine?: Unknown History of Pneumococcal: Unknown History of Hepatitis B Vaccine: Unknown Allergies Coded Allergies: Atorvastatin (Verified Allergy, Intermediate, HIVES, 04/19/18) Plasma Protein Fraction (Verified Allergy, Intermediate, RASH, 04/19/18) Mesalamine (Verified Adverse Reaction, Intermediate, GI SYMPTOMS, 04/19/18) Home Medications Scheduled Amlodipine Besylate (Amlodipine Besylate), 5 MG PO QAM Aspirin (Aspirin Ec), 81 MG PO QPM Fish Oil ([place]iram-3), 1 CAP PO QPM Metronidazole (Metronidazole), 500 MG PO BID Sotalol Hcl (Sotalol Hcl), 40 MG PO BID Scheduled PRN Phenazopyridine Hcl (Pyridium), 200 MG PO TID PRN for Bladder pain Review of Systems As noted per HPI, 10 systems reviewed and negative unless noted above. Physical Exam Vital Signs Date Time Temp Pulse Resp B/P (MAP) Pulse Ox O2 Delivery O2 Flow Rate FiO2 04/26/18 19:54 36.6 61 18 146/97 (113) 96 Room Air 04/26/18 19:11 72 18 111/74 98 Room Air 04/26/18 18:41 98 Room Air 04/26/18 17:24 66 18 118/68 98 Room Air 04/26/18 15:28 36.6 75 20 122/86 98 Room Air General Appearance: WD/WN, no apparent distress Head: normocephalic, atraumatic Eyes: normal inspection, PERRL, EOMI, sclerae normal ENT: normal ENT inspection, hearing grossly normal, TMs normal, pharynx normal , + pertinent finding (mucous membranes moist) Neck: supple, no adenopathy, thyroid normal, no JVD Respiratory/Chest: chest non-tender, lungs clear, normal breath sounds, no respiratory distress, no accessory muscle use Cardiovascular: regular rate, rhythm, no edema, no gallop, no JVD, normal peripheral pulses, + systolic murmur (+AVR click with 2/6 ABUNDIO noted throughout, radiated to back, abdomen) Abdomen/GI: normal bowel sounds, soft, no pulsatile mass, + tenderness (in lower abdomen b/l, no rebound, guarding, rigidity. Mcburney negative), + pertinent finding (+scarring from multiple abdominal surgies in past) Back: normal inspection, no CVA tenderness, no muscle spasm Extremities/Musculoskelatal: normal inspection, no calf tenderness, normal capillary refill, no pedal edema, normal range of motion Neurologic/Psych: alert, normal mood/affect, oriented x 3 Skin: normal color, warm/dry, no rash Diagnostics Laboratory Results Results Past 24 Hours Test 04/26/18 15:54 04/26/18 16:31 Range/Units White Blood Count 7.76 4.8-10.8 K/uL Red Blood Count 4.78 4.7-6.1 M/uL Hemoglobin 15.2 14.0-18.0 g/dL Hematocrit 42.5 42-52 % Mean Corpuscular Volume 88.9 80-100 fL Mean Corpuscular Hemoglobin 31.8 25-34 pg Mean Corpuscular Hemoglobin Concent 35.8 32-36 g/dl Platelet Count 260 130-400 K/uL Mean Platelet Volume 9.1 7.4-10.4 fL Neutrophils (%) (Auto) 60.8 % Lymphocytes (%) (Auto) 24.4 % Monocytes (%) (Auto) 8.2 % Eosinophils (%) (Auto) 4.4 % Basophils (%) (Auto) 1.2 % Neutrophils # (Auto) 4.72 1.4-6.5 K/uL Lymphocytes # (Auto) 1.89 1.2-3.4 K/uL Monocytes # (Auto) 0.64 0.11-0.59 K/uL Eosinophils # (Auto) 0.34 0-0.5 K/uL Basophils # (Auto) 0.09 0-0.2 K/uL RDW Standard Deviation 46.2 36.4-46.3 fL RDW Coefficient of Variation 14.2 11.5-14.5 % Immature Granulocyte % (Auto) 1.0 % Immature Granulocyte # (Auto) 0.08 0.00-0.02 K/uL Prothrombin Time 10.5 9.0-12.0 SECONDS Prothromb Time International Ratio 1.0 0.9-1.1 Activated Partial Thromboplast Time 24.1 21.0-31.0 SECONDS Partial Thromboplastin Ratio 0.9 Sodium Level 135 136-145 mmol/L Potassium Level 4.5 3.5-5.1 mmol/L Chloride Level 103 98-107 mmol/L Carbon Dioxide Level 26 21-32 mmol/L Anion Gap 7.0 3-11 mmol/L Blood Urea Nitrogen 23 7-18 mg/dl Creatinine 1.01 0.60-1.40 mg/dl Est Creatinine Clear Calc Drug Dose 96.4 ml/min Estimated GFR () 95.3 Estimated GFR (Non- 82.2 BUN/Creatinine Ratio 22.5 10-20 Random Glucose 108 70-99 mg/dl Calcium Level 9.7 8.5-10.1 mg/dl Magnesium Level 2.3 1.8-2.4 mg/dl Total Bilirubin 0.7 0.2-1 mg/dl Aspartate Amino Transf (AST/SGOT) 22 15-37 U/L Alanine Aminotransferase (ALT/SGPT) 25 12-78 U/L Alkaline Phosphatase 141 45-117 U/L Total Protein 9.1 6.4-8.2 gm/dl Albumin 3.8 3.4-5.0 gm/dl Globulin 5.3 2.5-4.0 gm/dl Albumin/Globulin Ratio 0.7 0.9-2 Lipase 166 73-393 U/L Urine Color DK YELLOW Urine Appearance CLEAR CLEAR Urine pH 5.0 4.5-7.5 Urine Specific [place] 1.023 1.000-1.030 Urine Protein 2+ NEG Urine Glucose (UA) NEG NEG Urine Ketones NEG NEG Urine Occult Blood 3+ NEG Urine Nitrite NEG NEG Urine Bilirubin NEG NEG Urine Urobilinogen NEG NEG Urine Leukocyte Esterase MODERATE NEG Urine WBC (Auto) >30 0-5 /hpf Urine RBC (Auto) >30 0-4 /hpf Urine Hyaline Casts (Auto) 1-5 0-5 /lpf Urine Epithelial Cells (Auto) 10-20 0-5 /lpf Urine Bacteria (Auto) NEG NEG Microbiology Results 04/26/18 Blood Culture, Received Pending 04/26/18 Blood Culture, Received Pending 04/26/18 C.difficile Toxin B Gene (PCR), Received Pending 04/26/18 Urine Culture, Received Pending Diagnostic Radiology CT ABD/PELVIS IMPRESSION: 1. Postsurgical changes of total proctocolectomy. With ileal pouch anal anastomosis. Moderate stool burden in the pouch could suggest a partial low-grade or functional obstruction at the anal anastomosis. Additionally, small bowel wall thickening at the proximal most portion of the pouch suggest mild pouchitis or a stricture given the mild upstream small bowel distention. No complete bowel obstruction. The more proximal small bowel anastomosis is patent. 2. Evidence of prior TURP with prostatomegaly. 3. Solid 4 mm left lower lobe pulmonary nodule. Follow-up per Donnie Society 2017 recommendations below. Please refer to below summary of Fleischner Society 2017 recommendations for follow-up of incidental CT nodules (H Betty et al. Guidelines for management of incidental pulmonary nodules detected on CT images: From the Fleischner Society 2017. Radiology 2017; 284: 228-243.) EKG AV dual paced 83 bpm Impression Assessment and Plan This is a 58 year old male with significant PMH of IBD-ulcerative colitis, hx of total proctocolectomy with ileal-anal anastomosis, Afib, hx of AVR, hx of pacemaker, HTN, s/p TURBT on 04/19/[address] Morfin who presents to [facility] secondary to abdominal discomfort, increased flatus x 2 days. In ED CBC unremarkable, BMP revealed sodium 135, BUN 23, current 1.01, glucose 108, alk phos 141. CT scan of the pelvis showed Moderate stool burden in the pouch which suggest a partial obstruction at the anal anastomosis as well as pouchitis. Partial Obstruction at ileal-anal anastomosis Pouchitis Constipation IBD-ulcerative colitis -admit under observation to med/surg -bowel rest, clear liquid diet ordered -IVF NS at 80cc/hr -Repeat KUB in a.m. -CBC, BMP in a.m. -GI Consult to Dr. Montes De Oca. Patient is established with Dr. Alexander as outpatient -Miralax 17g po daily -Colace 100mg po bid -Blood culture and stool culture pending -Continue Flagyl 500mg po bid through 04/29/18 with pouchitis HTN -continue amlodipine and sotalol AFIB -rate and rhythm controlled with sotalol and pacemaker -ASA, not on oral anticoagulation PACEMAKER Malignant neoplasm of bladder s/p TURBT 04/20/18 Dr. Morfin To follow up outpatient bx INVASIVE HIGH-GRADE UROTHELIAL CARCINOMA Possible referral to [facility] for bladder resection per patient Remote hx of LLE DVT s/p rotator cuff surgery -SCDS/Davian Hose and ASA for VTE prophylaxis -s/p TURBT with occasional hematuria -Will avoid anticoagulants for now Hx of Aortic Valve Replacement Bioprosthetic 4mm Left Lung Pulmonary Nodule -follow up with PCP regarding follow up ADDENDUM: This is a 58 year old male with a past medical history of ileal-anal anastomosis. Presented with partial small bowel obstruction and possible pouchitis. Was sent from GI office. Patient states he feels fine; had a few bowel movements in the ED. Plan: observe overnight clear liquid diet Flagyl for possible pouchitis GI consulted for further input Advanced Directives Existing Living Will: Yes Existing Power of Cardiovascular Technician: No Resuscitation Status VTE Prophylaxis Will order VTE Prophylaxis: Yes (SCDS, TEDs, ASA; recent TURBT, will avoid anticoagulants for now. )
[2018-04-26] MEDS ORDERED: ENOXAPARIN 40 MG/0.4 ML SYR SQ SCH (21:00)
[2018-04-26 21:08] VITALS: O2SAT 96
[2018-04-26] MEDS: SODIUM CHLORIDE 0.9% 1000ML 1,000 ML IV SCH (21:10)
[2018-04-26] MEDS: POLYETHYLENE (MIRALAX) 17 GM PACK PO SCH (21:11)
[2018-04-26] MEDS: DOCUSATE SODIUM 100 MG CAP PO SCH (21:12)
[2018-04-26] MEDS: ASPIRIN 81 MG ECTAB PO SCH (21:13)
[2018-04-26] MEDS: OMEGA-3 (PURIFIED FISH OIL) 1 GM CAP PO SCH (21:13)
[2018-04-26] MEDS: SOTALOL HCL 80 MG TAB PO SCH (21:13)
[2018-04-26] MEDS: METRONIDAZOLE 500 MG TAB PO SCH (21:14)
[2018-04-26 22:54] VITALS: BP 120/75; PULSE 70; TEMP 36.5; O2SAT 96
[2018-04-27 06:50] LABS: HEMATOCRIT 38.6 % (42-52); HEMOGLOBIN 13.3 g/dL (14.0-18.0); MEAN CELL VOLUME 89.1 fL (80-100); MEAN CORPUSCULAR HEMOGLOBIN 30.7 pg (25-34); MEAN CORPUSCULAR HGB CONC 34.5 g/dl (32-36); MEAN PLATELET VOLUME 9.3 fL (7.4-10.4); PLATELET COUNT 203 K/uL (130-400); RED CELL DISTRIBUTION WIDTH CV 14.1 % (11.5-14.5); WHITE BLOOD COUNT 6.83 K/uL (4.8-10.8)
[2018-04-27 07:20] VITALS: BP 125/81; PULSE 77; TEMP 36.6; O2SAT 97
[2018-04-27 07:30] LABS: CALCIUM 8.8 mg/dl (8.5-10.1); CREATININE 0.86 mg/dl (0.60-1.40); POTASSIUM 4.2 mmol/L (3.5-5.1)
[2018-04-27] MEDS: SODIUM CHLORIDE 0.9% 1000ML 1,000 ML IV SCH (08:22)
[2018-04-27] MEDS: AMLODIPINE BESYLATE 5 MG TAB PO SCH (08:22)
[2018-04-27] MEDS: METRONIDAZOLE 500 MG TAB PO SCH ×2 (08:23→21:04)
[2018-04-27] MEDS: SOTALOL HCL 80 MG TAB PO SCH ×2 (08:23→21:04)
[2018-04-27] MEDS: DOCUSATE SODIUM 100 MG CAP PO SCH ×2 (08:23→21:04)
[2018-04-27] MEDS: POLYETHYLENE (MIRALAX) 17 GM PACK PO SCH (08:24)
--- NOTE | 2018-04-27 08:47 | DIAGNOSTIC IMAGING REPORT ---
KUB HISTORY: Acute generalized abdominal pain with possible obstruction. obstruction COMPARISON: None. FINDINGS: Mildly prominent air-filled loops of small bowel are seen throughout the abdomen measuring up to 3.8 cm transversely. Anastomotic sutures and dat are seen within the pelvis. No pneumatosis or pneumoperitoneum. No urolith. Lead is noted overlying the right heart. Sternotomy wires are present with cardiac valvular prosthesis. Degenerative spurring about the spine. IMPRESSION: Prominent air-filled loops of small bowel suggest ileus or low-grade small bowel obstruction. Continued follow-up recommended. Electronically signed by: Solo Burton M.D. 04/27/2018 8:46 AM Dictated Date/Time: 04/27/2018 8:36 AM
[2018-04-27 14:14] VITALS: Ht 190.5 cm; Wt 96.9 kg
--- NOTE | 2018-04-27 14:53 | Gastrointestinal Consultation ---
Gastrointestinal Consultation Date of Consultation: Apr 27, 2018 Attending Physician: Mikel Mcnulty Consulting Physician: Baljeet Montes De Oca Reason for Consultation: Functional Obstruction History of Present Illness Patient is a 58 year old male w PMHx of UC vs Crohn's s/p total proctocolectomy w ileal-anal anastomosis, Afib, hx of AVR, pacemaker placement, HTN, recent TURBT, bladder carcinoma who presented to ED w c/o abd discomfort, distension since after his TURBT on 04/19/18. He denies being on narcotics after his procedure. He denies any fever, chills, CP, SOB, N/V. His bowel habits changes depending if he has pouchitis. Currently he is taking Flagyl 500mg BID for pouchitis and BM moves <5x a day. Denies any rectal pain or bleeding. He had CT abd/pelvis w IV contrast on admission which showed moderate stool burden at anal anastomosis w small bowel wall thickening at proximal most portion of pouch suggestive of mild pouchitis or stricture, no complete bowel obstruction. Proximal small bowel anastomosis is present. Evidence of prior TURP w prostatomegaly. + solid 4mm LLL pulmonary nodule. In regards to his IBD, he's managed by Dr. Sen in outpt GI clinic. He has chronic intermittent pouchitis usually managed w Flagyl and VSL 3. He developed induration and was evaluated by colorectal surgery at [facility], exam under anesthesia done w 2 setons placement, found to have some fistula. They suspect he may have Crohn's instead of UC. He was then started on Humira but developed worsening diarrhea, and he self DC'd Humira about >2 months ago. Last colonoscopy done 03/07/17 showed patent ileal poch-anal anastomosis w congestions , edema and erythema, ulceration. Ileum normal. He currently feels well, abd not as distended. He continues to have small amt of stools and some flatus. Tolerating CL diet w/o N/V. KUB this AM showed persistent dilated small bowel loops up to 3cm. Cdiff was negative. Past Medical/Surgical History Medical Problems: (1) Lower abdominal pain Status: Acute (2) Partial bowel obstruction Status: Acute Past Medical History: See HPI Past Surgical History: See HPI Family History FH: CAD (coronary artery disease) FATHER FH: cancer MOTHER FH: liver cancer GRANDMOTHER Social History Smoking Status: Former Smoker (quit in 1987) Alcohol Use: occasionally Drug Use: none Marital Status: Allergies Coded Allergies: Atorvastatin (Verified Allergy, Intermediate, HIVES, 04/19/18) Plasma Protein Fraction (Verified Allergy, Intermediate, RASH, 04/19/18) Mesalamine (Verified Adverse Reaction, Intermediate, GI SYMPTOMS, 04/19/18) Current Medications Home Meds and Scripts Medications Dose Route/Sig Max Daily Dose Days Date Category Aspirin Ec (Aspirin) 81 Mg Tab 81 Mg PO QPM 04/26/18 Reported Metronidazole 500 Mg Tab 500 Mg PO BID 04/26/18 Reported Amlodipine Besylate 5 Mg Tab 5 Mg PO QAM 04/26/18 Reported Pyridium (Phenazopyridine Hcl) 200 Mg Tab 200 Mg PO TID PRN 04/19/18 Rx [place]-3 (Fish Oil) 1 Ea Cap 1 Cap PO QPM 04/17/18 Reported Sotalol Hcl 80 Mg Tab 40 Mg PO BID 04/17/18 Reported Review of Systems Constitutional: No fever, No chills Respiratory: No cough, No shortness of breath Cardiac: No chest pain Abdomen: + pain, No nausea, No vomiting, No diarrhea, No GI bleeding Skin: No rash, No itch, No jaundice Physical Exam Date Time Temp Pulse Resp B/P (MAP) Pulse Ox O2 Delivery O2 Flow Rate FiO2 04/27/18 07:20 36.6 77 18 125/81 (96) 97 Room Air 04/27/18 07:15 Room Air 04/27/18 00:00 Room Air 04/26/18 22:54 36.5 70 16 120/75 (90) 96 Room Air 04/26/18 21:08 96 Room Air 04/26/18 19:54 36.6 61 18 146/97 (113) 96 Room Air 04/26/18 19:11 72 18 111/74 98 Room Air 04/26/18 18:41 98 Room Air 04/26/18 17:24 66 18 118/68 98 Room Air 04/26/18 15:28 36.6 75 20 122/86 98 Room Air General Appearance: WD/WN, no apparent distress Eyes: normal inspection, PERRL, EOMI Neck: supple, no JVD, trachea midline Respiratory/Chest: normal breath sounds, no respiratory distress, no accessory muscle use Cardiovascular: regular rate, rhythm, no gallop, no murmur Abdomen: normal bowel sounds, non tender, + distended (mild) Extremities: normal inspection, no pedal edema, no calf tenderness Neurologic/Psych: alert, normal mood/affect, oriented x 3 Skin: normal color, no jaundice, no rash Laboratory Results Last 24 Hours Test 04/26/18 15:54 04/26/18 16:31 04/27/18 06:07 White Blood Count 7.76 K/uL 6.83 K/uL Red Blood Count 4.78 M/uL 4.33 M/uL Hemoglobin 15.2 g/dL 13.3 g/dL Hematocrit 42.5 % 38.6 % Mean Corpuscular Volume 88.9 fL 89.1 fL Mean Corpuscular Hemoglobin 31.8 pg 30.7 pg Mean Corpuscular Hemoglobin Concent 35.8 g/dl 34.5 g/dl Platelet Count 260 K/uL 203 K/uL Mean Platelet Volume 9.1 fL 9.3 fL Neutrophils (%) (Auto) 60.8 % Lymphocytes (%) (Auto) 24.4 % Monocytes (%) (Auto) 8.2 % Eosinophils (%) (Auto) 4.4 % Basophils (%) (Auto) 1.2 % Neutrophils # (Auto) 4.72 K/uL Lymphocytes # (Auto) 1.89 K/uL Monocytes # (Auto) 0.64 K/uL Eosinophils # (Auto) 0.34 K/uL Basophils # (Auto) 0.09 K/uL RDW Standard Deviation 46.2 fL 46.0 fL RDW Coefficient of Variation 14.2 % 14.1 % Immature Granulocyte % (Auto) 1.0 % Immature Granulocyte # (Auto) 0.08 K/uL Prothrombin Time 10.5 SECONDS Prothromb Time International Ratio 1.0 Activated Partial Thromboplast Time 24.1 SECONDS Partial Thromboplastin Ratio 0.9 Sodium Level 135 mmol/L 138 mmol/L Potassium Level 4.5 mmol/L 4.2 mmol/L Chloride Level 103 mmol/L 106 mmol/L Carbon Dioxide Level 26 mmol/L 25 mmol/L Anion Gap 7.0 mmol/L 7.0 mmol/L Blood Urea Nitrogen 23 mg/dl 16 mg/dl Creatinine 1.01 mg/dl 0.86 mg/dl Est Creatinine Clear Calc Drug Dose 96.4 ml/min 113.3 ml/min Estimated GFR () 95.3 111.6 Estimated GFR (Non- 82.2 96.3 BUN/Creatinine Ratio 22.5 18.2 Random Glucose 108 mg/dl 95 mg/dl Calcium Level 9.7 mg/dl 8.8 mg/dl Magnesium Level 2.3 mg/dl Total Bilirubin 0.7 mg/dl Aspartate Amino Transf (AST/SGOT) 22 U/L Alanine Aminotransferase (ALT/SGPT) 25 U/L Alkaline Phosphatase 141 U/L Total Protein 9.1 gm/dl Albumin 3.8 gm/dl Globulin 5.3 gm/dl Albumin/Globulin Ratio 0.7 Lipase 166 U/L Urine Color DK YELLOW Urine Appearance CLEAR Urine pH 5.0 Urine Specific [place] 1.023 Urine Protein 2+ Urine Glucose (UA) NEG Urine Ketones NEG Urine Occult Blood 3+ Urine Nitrite NEG Urine Bilirubin NEG Urine Urobilinogen NEG Urine Leukocyte Esterase MODERATE Urine WBC (Auto) >30 /hpf Urine RBC (Auto) >30 /hpf Urine Hyaline Casts (Auto) 1-5 /lpf Urine Epithelial Cells (Auto) 10-20 /lpf Urine Bacteria (Auto) NEG Impression Patient is a 58 year old male w hx of UC vs Crohn's disease s/p total proctocolectomy w ileal anal anastomosis (J pouch) who is admitted with likely ileus, suspected from anesthesia use during his TURBT for bladder ca on 04/19/18 Plan - CL diet; make NPO if he has any increased abd pain, n/v. Consider NGT placement if N/V - Repeat KUB in AM - Colace 100mg BID, Miralax 17g daily - Relistor 12mg injection x 1 dose - Complete Flagyl 500mg BID for pouchitis (per pt last dose by this Tuesday). - F/U blood and urine culture results - Discussed case with Dr. Sen who usually manages pt in outpt setting: he should f/u w Colorectal Surgery in [facility] upon DC to determine if need further surgical intervention. He is also going to f/u w [facility] for bladder ca surgery. - F/U with PCP for pulmonary nodule for f/u CT scan in the future. I saw and evaluated the patient with Ms. Conley and agree with the above assessment and plan. Patient presented with abdominal discomfort yesterday and was found to have evidence of an ileus. Of note he had been on some pain medications and had a recent procedure in which time a bladder tumor was resected. The patient is followed by my partner for indeterminant inflammatory bowel disease and had a prior subtotal colectomy done many years ago. He is being managed on a regular basis with [facility] due to recurrent pouchitis. The patient reports feeling much better this afternoon. Physical examination No obvious distress No focal abdominal tenderness, no distention today Impression: Patient presenting with an ileus likely related to his recent procedure or perhaps pain medications. The patient will be given additional dose of Relistor today and will hopefully continue to improve overnight and perhaps be able to be discharged tomorrow afternoon. The patient will continue to follow with my partner for his pouchitis. Upon discharge she will likely begin a supplement called VSL3.
[2018-04-27 15:11] VITALS: BP 131/82; PULSE 70; TEMP 36.7; O2SAT 97
--- NOTE | 2018-04-27 16:07 | Progress Note ---
Progress Note Date of Service Apr 27, 2018. Progress Note subjective: Patient denies problems with eating. Denies Nausea. Reports that he is passing flatus and that he is making bowel movements. Patient denies chest pain or shortness of breath Physical Exam General: no acute distress Eyes: EOMI Heart: regular rate Lungs: clear to auscultation bilaterally, no wheezing, no use of accessory muscles Abdomen: soft, bowel sounds present, mild tenderness as reported by patient around epigastrium Extremities: no edema Assessment and Plan This is a 58 year old male with significant PMH of IBD-ulcerative colitis, hx of total proctocolectomy with ileal-anal anastomosis, Afib, hx of AVR, hx of pacemaker, HTN, s/p TURBT on 04/19/[address] Morfin who presents to [facility] secondary to abdominal discomfort, increased flatus x 2 days In ED CBC unremarkable, BMP revealed sodium 135, BUN 23, current 1.01, glucose 108, alk phos 141. CT scan of the pelvis showed Moderate stool burden in the pouch which suggest a partial obstruction at the anal anastomosis as well as pouchitis. Ileus as suggested on admission CT scan and and follow up KUB on 04/26/18 as per gastroenterology continue clear liquid diet and make NPO if any increased abdominal pain and consider NG tube placement if nausea or vomiting and a repeat KUB ordered for 04/28/18 in the AM continue bowel regimen Continue Flagyl 500mg po bid through 04/29/18 for pouchitis Malignant neoplasm of bladder s/p TURBT 04/20/18 Dr. Morfin To follow up outpatient bx INVASIVE HIGH-GRADE UROTHELIAL CARCINOMA Possible referral to [facility] for bladder resection per patient AFIB -rate and rhythm controlled with sotalol and pacemaker -ASA, not on oral anticoagulation Remote hx of LLE DVT s/p rotator cuff surgery -SCDS/Davian Hose and ASA for VTE prophylaxis -s/p TURBT with occasional hematuria -Will avoid anticoagulants for now Hypertension history -continue amlodipine and sotalol History of Aortic Valve Replacement Bioprosthetic 4mm Left Lung Pulmonary Nodule as seen on abdomen and pelvis CT in a patient with history of smoker and cancer history will order CT chest with and without IV contrast to complete lung evaluation
[2018-04-27] MEDS ORDERED: METHYLNALTREXONE BROMIDE INJ 12 MG/0.6 ML SYR SQ ONE (16:15)
[2018-04-27] MEDS ORDERED: OPTIRAY 320 IV PRN (16:45)
[2018-04-27] MEDS: ASPIRIN 81 MG ECTAB PO SCH (21:04)
[2018-04-27] MEDS: OMEGA-3 (PURIFIED FISH OIL) 1 GM CAP PO SCH (21:04)
[2018-04-27 22:54] VITALS: BP 121/79; PULSE 74; TEMP 36.5; O2SAT 98
[2018-04-28 08:05] VITALS: BP 122/84; PULSE 66; TEMP 36.8; O2SAT 95
--- NOTE | 2018-04-28 08:17 | DIAGNOSTIC IMAGING REPORT ---
KUB CLINICAL HISTORY: Reevaluate ileus. COMPARISON STUDY: KUB April 27, 2018. FINDINGS: Postoperative findings from a total proctocolectomy are better depicted on prior CT. Moderate gaseous small bowel dilatation has mildly improved since exam of April 27, 2018. No calcifications are identified. Visualized skeletal structures are unremarkable. IMPRESSION: Persistent, but mildly improved, small bowel dilatation following total proctocolectomy. The findings may reflect a partial small bowel obstruction or ileus. Electronically signed by: Carlos Yanez M.D. 04/28/2018 8:16 AM Dictated Date/Time: 04/28/2018 8:09 AM
[2018-04-28] MEDS: SOTALOL HCL 80 MG TAB PO SCH (08:44)
[2018-04-28] MEDS: AMLODIPINE BESYLATE 5 MG TAB PO SCH (08:44)
[2018-04-28] MEDS: DOCUSATE SODIUM 100 MG CAP PO SCH (08:44)
[2018-04-28] MEDS: POLYETHYLENE (MIRALAX) 17 GM PACK PO SCH (08:45)
[2018-04-28] MEDS: METRONIDAZOLE 500 MG TAB PO SCH (08:45)
--- NOTE | 2018-04-28 08:58 | DIAGNOSTIC IMAGING REPORT ---
CT SCAN OF THE CHEST WITH IV CONTRAST CLINICAL HISTORY: Pulmonary nodule. COMPARISON STUDY: Abdominal CT dated 04/26/2018. TECHNIQUE: Following the IV administration of 116 cc of Optiray 320, CT scan of the thorax was performed from the thoracic inlet to the upper abdomen. Images are reviewed in the axial, sagittal, and coronal planes. IV contrast was administered without complication. A dose lowering technique was utilized adhering to the principles of ALARA. CT DOSE: 528.16 mGy.cm FINDINGS: Thyroid: Imaged portions of the thyroid gland are normal in size and attenuation. Thoracic aorta: There is mild aneurysmal dilatation of the ascending thoracic aorta which measures up to 4.1 cm. The remainder of the thoracic aorta is normal in caliber and the arch demonstrates standard 3-vessel anatomy. No dissection is seen. Pulmonary vasculature: The pulmonary trunk is dilated, measuring up to 3.3 cm. This suggests pulmonary artery hypertension. There are no filling defects identified in the central pulmonary vessels to indicate pulmonary embolus. Note that this examination was not protocoled for evaluation of the pulmonary arteries. Heart: The patient is status post midline sternotomy and aortic valve replacement. A cardiac pacemaker is present in the left chest wall. The heart is enlarged and without pericardial effusion. Lungs and pleural spaces: There is a trace right pleural effusion, similar to previous. No airspace consolidation is seen typical for pneumonia and there is no left pleural effusion. Linear atelectasis/scarring is present at both lung bases. The trachea and central airways are clear. A calcified granuloma is noted in the right upper lobe along the minor fissure. There is a 6 cm focus of pleural-based nodularity in the left lower lobe along the major fissure seen on image #156. A 4 mm left lower lobe nodule is seen image #258. There is a 2 mm right lower lobe nodule seen on image #253, and a 3 mm right upper lobe nodule is seen on image #78. Mediastinum: There is no mediastinal lymphadenopathy. Harriett: Clear. Axillae: There is no axillary lymphadenopathy. Upper abdomen: Partially visualized upper abdominal viscera is within normal limits. Skeletal structures: No lytic or blastic bony lesions are seen. IMPRESSION: 1. There are scattered (at least 4) pulmonary and pleural-based nodules measuring up to 6 mm. These are pathologically indeterminant but low suspicion, and follow-up is recommended as per the Fleischner criteria. See below. 2. There is no airspace consolidation typical for pneumonia. 3. There is mild aneurysmal dilatation of the ascending thoracic aorta which measures up to 4.1 cm. The remainder of the thoracic aorta is normal in caliber. 4. Cardiomegaly and cardiac pacemaker with evidence of pulmonary artery hypertension. 5. Trace right pleural effusion. Please refer to below summary of Fleischner criteria recommendations for follow-up of incidental CT nodules (Melanie Hernández, Guidelines for management of small pulmonary nodules detected on CT scans: A statement from the Fleischner Society, Radiology 237: [phone].) SOLID NODULES Solitary nodule size: <6 mm * low risk patients: no follow-up needed * high risk patients: optional CT at 12 months Solitary nodule size: 6-8 mm * low risk patients: follow-up at 6-12 months, then consider further follow-up at 18-24 months * high risk patients: initial follow-up CT at 6-12 months and then at 18-24 months if no change Solitary nodule size: >8 mm * either low or high risk patients - consider follow-up CT at 3 months, and/or CT-PET, and/or biopsy Multiple nodules size: <6 mm * low risk patients: no routine follow-up * high risk patients: optional CT at 12 months Multiple nodules size: 6-8 mm * low risk patients: follow-up at 3-6 months, then consider further follow-up at 18-24 months * high risk patients: follow-up at 3-6 months, then at 18-24 months if no change Multiple nodules size: >8 mm * low risk patients: follow-up at 3-6 months, then consider further follow-up at 18-24 months * high risk patients: follow-up at 3-6 months, then at 18-24 months if no change Note: newly detected indeterminate nodule in persons 35 years of age or older. * low risk patients: minimal or absent history of smoking and/or other known risk factors * high risk patients: history of smoking or of other known risk factors (e.g. first degree relative with lung cancer, or exposure to asbestos, radon, uranium) * if a nodule up to 8 mm is partly solid or is ground glass further follow-up is required after 24 months to exclude possible slow growing adenocarcinoma (SONI) SUBSOLID NODULES Solitary pure ground-glass nodule * nodule size <6 mm - no CT follow-up required * nodule size >=6 mm - follow-up CT at 6-12 months, then every 2 years until 5 years Solitary part-solid nodule * nodule size <6 mm - no CT follow-up required * nodule size >=6 mm - follow-up CT at 3-6 months. If unchanged, and solid component remains <6 mm, then annual follow-up for 5 years Multiple subsolid nodules * nodule size <6 mm - follow-up CT at 3-6 months, consider further follow-up at 2 and 4 years if stable * nodule size >=6 mm - follow-up CT at 3-6 months, subsequent management based on the most suspicious nodule(s) Electronically signed by: Sammy Mayo M.D. 04/28/2018 8:57 AM Dictated Date/Time: 04/28/2018 8:47 AM
[2018-04-28 08:59] VITALS: O2SAT 95
[2018-04-28] MEDS ORDERED: POLYETHYLENE (MIRALAX) 17 GM PACK PO SCH (09:00)
--- NOTE | 2018-04-28 10:47 | Progress Note ---
Internal Med Progress Note Date of Service: Apr 28, 2018. Provider Documentation: subjective: Patient denies problems with eating. Denies Nausea or vomiting. Reports that he is passing flatus. Patient passed bowel movement before KUB obtained. Reports abdominal discomfort has improved Patient denies chest pain or shortness of breath Physical Exam General: no acute distress Eyes: EOMI Heart: regular rate Lungs: clear to auscultation bilaterally, no wheezing, no use of accessory muscles Abdomen: soft, bowel sounds present, nontender Extremities: no edema ASSESSMENT & PLAN: This is a 58 year old male with significant PMH of IBD-ulcerative colitis, hx of total proctocolectomy with ileal-anal anastomosis, Afib, hx of AVR, hx of pacemaker, HTN, s/p TURBT on 04/19/[address] Morfin who presents to [facility] secondary to abdominal discomfort, increased flatus x 2 days In ED CBC unremarkable, BMP revealed sodium 135, BUN 23, current 1.01, glucose 108, alk phos 141. CT scan of the abdomen/pelvis with contrast showed: Postsurgical changes of total proctocolectomy. With ileal pouch anal anastomosis. Moderate stool burden in the pouch could suggest a partial low-grade or functional obstruction at the anal anastomosis. Additionally, small bowel wall thickening at the proximal most portion of the pouch suggest mild pouchitis or a stricture given the mild upstream small bowel distention. No complete bowel obstruction. The more proximal small bowel anastomosis is patent Patient then evaluated by Gastroenterology service and they have assessed that perhaps patient may be having ileus as suggested on admission CT scan and and follow up KUB on 04/26/18. Subsequent KUB shows Persistent, but mildly improved, small bowel dilatation Clinically the patient has been doing well and have been able to pass bowel movements Patient should continue Flagyl 500mg po bid through 04/29/18 for pouchitis Inpatient Gastroenterology advised discharge with probiotic of VSL supplements Inpatient Gastroenterology also discussed with outpatient Gastroenterology Dr. Sen and advised that patient should f/u w Colorectal Surgery upon discharge to determine if need further surgical intervention Malignant neoplasm of bladder s/p TURBT 04/20/18 Dr. Morfin and with INVASIVE HIGH-GRADE UROTHELIAL CARCINOMA Patient should follow up as outpatient for further evaluation Pulmonary nodules (multiple) CT chest with contrast 1. There are scattered (at least 4) pulmonary and pleural-based nodules measuring up to 6 mm. These are pathologically indeterminant but low suspicion, and follow-up is recommended as per the Fleischner criteria. 2. There is no airspace consolidation typical for pneumonia. 3. There is mild aneurysmal dilatation of the ascending thoracic aorta which measures up to 4.1 cm. The remainder of the thoracic aorta is normal in caliber. 4. Cardiomegaly and cardiac pacemaker with evidence of pulmonary artery hypertension. 5. Trace right pleural effusion. History of Atrial Fibrillation -rate and rhythm controlled with sotalol and pacemaker -ASA, not on oral anticoagulation Remote hx of LLE DVT s/p rotator cuff surgery continue aspirin History of Aortic Valve Replacement Bioprosthetic Hypertension history -continue amlodipine and sotalol Discharge Instructions Patient can return to work on 04/25/18 with moderate activities Please follow up with: primary care doctor for the lung nodules and other health issues 05/02/2018 9:15 AM Karma Morfin MD Urology, [facility] patient should f/u w Colorectal Surgery upon discharge to determine if need further surgical intervention 07/18/2018 4:00 PM Mario Sen MD Gastroenterology, [facility] Vital Signs: Date Time Temp Pulse Resp B/P (MAP) Pulse Ox O2 Delivery O2 Flow Rate FiO2 04/28/18 08:59 95 Room Air 04/28/18 08:05 36.8 66 18 122/84 (97) 95 Room Air 04/28/18 07:30 Room Air 04/27/18 22:54 36.5 74 16 121/79 (93) 98 Room Air 04/27/18 21:20 Room Air 04/27/18 15:11 36.7 70 18 131/82 (98) 97 Room Air
[2018-04-28] MEDS ORDERED: PROBCAP3 OR (10:54)
--- NOTE | 2018-04-28 11:28 | Discharge Instructions ---
Discharge Instructions Date of Service Apr 28, 2018. Admission Reason for Admission: Constipation,Pouchitis Discharge Discharge Diagnosis / Problem: ileus, pouchitis, bladder cancer, multiple lung nodules Discharge Goals Goal(s): Improve function, Improve disease control Activity Recommendations Activity Limitations: per Instructions/Follow-up section . Instructions / Follow-Up Instructions / Follow-Up This is a 58 year old male with significant PMH of IBD-ulcerative colitis, hx of total proctocolectomy with ileal-anal anastomosis, Afib, hx of AVR, hx of pacemaker, HTN, s/p TURBT on 04/19/[address] Morfin who presents to [facility] secondary to abdominal discomfort, increased flatus x 2 days In ED CBC unremarkable, BMP revealed sodium 135, BUN 23, current 1.01, glucose 108, alk phos 141. CT scan of the abdomen/pelvis with contrast showed: Postsurgical changes of total proctocolectomy. With ileal pouch anal anastomosis. Moderate stool burden in the pouch could suggest a partial low-grade or functional obstruction at the anal anastomosis. Additionally, small bowel wall thickening at the proximal most portion of the pouch suggest mild pouchitis or a stricture given the mild upstream small bowel distention. No complete bowel obstruction. The more proximal small bowel anastomosis is patent Patient then evaluated by Gastroenterology service and they have assessed that perhaps patient may be having ileus as suggested on admission CT scan and and follow up KUB on 04/26/18. Subsequent KUB shows Persistent, but mildly improved, small bowel dilatation Clinically the patient has been doing well and have been able to pass bowel movements Patient should continue Flagyl 500mg po bid through 04/29/18 for pouchitis Inpatient Gastroenterology advised discharge with probiotic of VSL supplements Inpatient Gastroenterology also discussed with outpatient Gastroenterology Dr. Sen and advised that patient should f/u w Colorectal Surgery upon discharge to determine if need further surgical intervention Malignant neoplasm of bladder s/p TURBT 04/20/18 Dr. Morfin and with INVASIVE HIGH-GRADE UROTHELIAL CARCINOMA Patient should follow up as outpatient for further evaluation Pulmonary nodules (multiple) CT chest with contrast 1. There are scattered (at least 4) pulmonary and pleural-based nodules measuring up to 6 mm. These are pathologically indeterminant but low suspicion, and follow-up is recommended as per the Fleischner criteria. 2. There is no airspace consolidation typical for pneumonia. 3. There is mild aneurysmal dilatation of the ascending thoracic aorta which measures up to 4.1 cm. The remainder of the thoracic aorta is normal in caliber. 4. Cardiomegaly and cardiac pacemaker with evidence of pulmonary artery hypertension. 5. Trace right pleural effusion. History of Atrial Fibrillation -rate and rhythm controlled with sotalol and pacemaker -ASA, not on oral anticoagulation Remote hx of LLE DVT s/p rotator cuff surgery continue aspirin History of Aortic Valve Replacement Bioprosthetic Hypertension history -continue amlodipine and sotalol Discharge Instructions Patient can return to work on 04/25/18 with moderate activities Please follow up with: primary care doctor for the lung nodules and other health issues 05/02/2018 9:15 AM Karma Morfin MD Urology, [facility] patient should f/u w Colorectal Surgery upon discharge to determine if need further surgical intervention 07/18/2018 4:00 PM Mario Sen MD Gastroenterology, [facility] Current Hospital Diet Patient's current hospital diet: Full Liquid Diet Discharge Diet Recommended Diet: Regular Diet Pending Studies Studies pending at discharge: no Laboratory Results 04/27/18 06:07 04/27/18 06:07 Test 04/26/18 15:54 04/26/18 16:31 04/27/18 06:07 Immature Granulocyte % (Auto) 1.0 % White Blood Count 7.76 K/uL (4.8-10.8) Red Blood Count 4.78 M/uL (4.7-6.1) 4.33 M/uL (4.7-6.1) Hemoglobin 15.2 g/dL (14.0-18.0) Hematocrit 42.5 % (42-52) Mean Corpuscular Volume 88.9 fL (80-100) 89.1 fL (80-100) Mean Corpuscular Hemoglobin 31.8 pg (25-34) 30.7 pg (25-34) Mean Corpuscular Hemoglobin Concent 35.8 g/dl (32-36) 34.5 g/dl (32-36) Platelet Count 260 K/uL (130-400) Mean Platelet Volume 9.1 fL (7.4-10.4) 9.3 fL (7.4-10.4) Neutrophils (%) (Auto) 60.8 % Lymphocytes (%) (Auto) 24.4 % Monocytes (%) (Auto) 8.2 % Eosinophils (%) (Auto) 4.4 % Basophils (%) (Auto) 1.2 % Neutrophils # (Auto) 4.72 K/uL (1.4-6.5) Lymphocytes # (Auto) 1.89 K/uL (1.2-3.4) Monocytes # (Auto) 0.64 K/uL (0.11-0.59) Eosinophils # (Auto) 0.34 K/uL (0-0.5) Basophils # (Auto) 0.09 K/uL (0-0.2) Immature Granulocyte # (Auto) 0.08 K/uL (0.00-0.02) Prothrombin Time 10.5 SECONDS (9.0-12.0) Prothromb Time International Ratio 1.0 (0.9-1.1) Activated Partial Thromboplast Time 24.1 SECONDS (21.0-31.0) Partial Thromboplastin Ratio 0.9 Magnesium Level 2.3 mg/dl (1.8-2.4) Total Bilirubin 0.7 mg/dl (0.2-1) Aspartate Amino Transf (AST/SGOT) 22 U/L (15-37) Alanine Aminotransferase (ALT/SGPT) 25 U/L (12-78) Alkaline Phosphatase 141 U/L (45-117) Total Protein 9.1 gm/dl (6.4-8.2) Albumin 3.8 gm/dl (3.4-5.0) Globulin 5.3 gm/dl (2.5-4.0) Albumin/Globulin Ratio 0.7 (0.9-2) Lipase 166 U/L (73-393) Urine Color DK YELLOW Urine Appearance CLEAR (CLEAR) Urine pH 5.0 (4.5-7.5) Urine Specific [place] 1.023 (1.000-1.030) Urine Protein 2+ (NEG) Urine Glucose (UA) NEG (NEG) Urine Ketones NEG (NEG) Urine Occult Blood 3+ (NEG) Urine Nitrite NEG (NEG) Urine Bilirubin NEG (NEG) Urine Urobilinogen NEG (NEG) Urine Leukocyte Esterase MODERATE (NEG) Urine WBC (Auto) >30 /hpf (0-5) Urine RBC (Auto) >30 /hpf (0-4) Urine Hyaline Casts (Auto) 1-5 /lpf (0-5) Urine Epithelial Cells (Auto) 10-20 /lpf (0-5) Urine Bacteria (Auto) NEG (NEG) RDW Standard Deviation 46.0 fL (36.4-46.3) RDW Coefficient of Variation 14.1 % (11.5-14.5) Anion Gap 7.0 mmol/L (3-11) Est Creatinine Clear Calc Drug Dose 113.3 ml/min Estimated GFR () 111.6 Estimated GFR (Non- 96.3 BUN/Creatinine Ratio 18.2 (10-20) Calcium Level 8.8 mg/dl (8.5-10.1) Date/Time Source Procedure Growth Status 04/26/18 18:30 Blood Blood Culture - Preliminary NO GROWTH TO DATE. Resulted 04/26/18 18:30 Stool C.difficile Toxin B Gene (PCR) - Final No C. difficile toxin B gene detected Complete 04/26/18 16:31 Urine , Clean Catch Urine Culture - Preliminary NO GROWTH - LESS THAN 1,000 COLONIES/... Resulted Medical Emergencies . Who to Call and When: Medical Emergencies: If at any time you feel your situation is an emergency, please call 911 immediately. . Non-Emergent Contact Non-Emergency issues call your: Director Law Enforcement, Urologist, Specialist Call Non-Emergent contact if: you have any medication questions . . "Provider Documentation" section prepared by Mikel Mcnulty. .
--- NOTE | 2018-04-28 11:29 | Discharge Summary ---
Discharge Summary Date of Service Apr 28, 2018. Discharge Summary Admission Date: Apr 26, 2018 at 18:35 Discharge Date: Apr 28, 2018 Discharge Disposition: Home Principal Diagnosis: was evaluated for partial small bowel obstruction and determined to have ileus pouchitis, bladder cancer, multiple lung nodules Medication Reconciliation New Medications: Probiotic Product (Vsl#3) 1 Cap Cap 1 CAP OR DAILY for 30 Days, #30 TAB Continued Medications: Amlodipine Besylate (Amlodipine Besylate) 5 Mg Tab 5 MG PO QAM Aspirin (Aspirin Ec) 81 Mg Tab 81 MG PO QPM Fish Oil ([place]-3) 1 Ea Cap 1 CAP PO QPM, CAP Metronidazole (Metronidazole) 500 Mg Tab 500 MG PO BID Phenazopyridine Hcl (Pyridium) 200 Mg Tab 200 MG PO TID PRN for Bladder pain, #9 TAB Sotalol Hcl (Sotalol Hcl) 80 Mg Tab 40 MG PO BID, TAB Admission Information HPI (per Admitting provider): This is a 58 year old male with significant PMH of IBD-ulcerative colitis, hx of total proctocolectomy with ileal-anal anastomosis, Afib, hx of AVR, hx of pacemaker, HTN, s/p TURBT on 04/19/[address] Morfin who presents to [facility] secondary to abdominal discomfort, increased flatus x 2 days. Also of note patient currently taking flagyl 500mg po bid until 04/29 for Pouchitis. Patient states ever since being discharged s/p TURBT he has had increased abdominal distention and pain. Pain located in lower abdomen, constant, waxes and wanes in severity, 3/10 at worse. Symptoms made better with pepto bismal, imodium and made worse with increased gas and laying on right side. Had similar sx in past. Last BM was few minutes prior to our visit, he state it was like, "cow geremias," which is usual for him. Pain has lessened. Last meal was at 7am this a.m. No appetite. Denies f/c/s, chest pain, sob, dizziness, lightheaded, emesis, diarrhea. He does get occasional dysuria since procedure. He states he is to go to [facility] for possible bladder resection. In ED CBC unremarkable, BMP revealed sodium 135, BUN 23, current 1.01, glucose 108, alk phos 141. CT scan of the pelvis showed Moderate stool burden in the pouch which suggest a partial obstruction at the anal anastomosis as well as pouchitis. Blood and stool cultures still pending. Physical Exam (per Admitting): General Appearance: WD/WN, no apparent distress Head: normocephalic, atraumatic Eyes: normal inspection, PERRL, EOMI, sclerae normal ENT: normal ENT inspection, hearing grossly normal, TMs normal, pharynx normal, + pertinent finding (mucous membranes moist) Neck: supple, no adenopathy, thyroid normal, no JVD Respiratory/Chest: chest non-tender, lungs clear, normal breath sounds, no respiratory distress, no accessory muscle use Cardiovascular: regular rate, rhythm, no edema, no gallop, no JVD, normal peripheral pulses, + systolic murmur (+AVR click with 2/6 ABUNDIO noted throughout, radiated to back, abdomen) Abdomen/GI: normal bowel sounds, soft, no pulsatile mass, + tenderness (in lower abdomen b/l, no rebound, guarding, rigidity. Mcburney negative), + pertinent finding (+scarring from multiple abdominal surgies in past) Back: normal inspection, no CVA tenderness, no muscle spasm Extremities/Musculoskelatal: normal inspection, no calf tenderness, normal capillary refill, no pedal edema, normal range of motion Neurologic/Psych: alert, normal mood/affect, oriented x 3 Skin: normal color, warm/dry, no rash Hospital Course This is a 58 year old male with significant PMH of IBD-ulcerative colitis, hx of total proctocolectomy with ileal-anal anastomosis, Afib, hx of AVR, hx of pacemaker, HTN, s/p TURBT on 04/19/[address] Morfin who presents to [facility] secondary to abdominal discomfort, increased flatus x 2 days In ED CBC unremarkable, BMP revealed sodium 135, BUN 23, current 1.01, glucose 108, alk phos 141. CT scan of the abdomen/pelvis with contrast showed: Postsurgical changes of total proctocolectomy. With ileal pouch anal anastomosis. Moderate stool burden in the pouch could suggest a partial low-grade or functional obstruction at the anal anastomosis. Additionally, small bowel wall thickening at the proximal most portion of the pouch suggest mild pouchitis or a stricture given the mild upstream small bowel distention. No complete bowel obstruction. The more proximal small bowel anastomosis is patent Patient then evaluated by Gastroenterology service and they have assessed that perhaps patient may be having ileus as suggested on admission CT scan and and follow up KUB on 04/26/18. Subsequent KUB shows Persistent, but mildly improved, small bowel dilatation Clinically the patient has been doing well and have been able to pass bowel movements Patient should continue Flagyl 500mg po bid through 04/29/18 for pouchitis Inpatient Gastroenterology advised discharge with probiotic of VSL supplements Inpatient Gastroenterology also discussed with outpatient Gastroenterology Dr. Sen and advised that patient should f/u w Colorectal Surgery upon discharge to determine if need further surgical intervention Malignant neoplasm of bladder s/p TURBT 04/20/18 Dr. Morfin and with INVASIVE HIGH-GRADE UROTHELIAL CARCINOMA Patient should follow up as outpatient for further evaluation Pulmonary nodules (multiple) CT chest with contrast 1. There are scattered (at least 4) pulmonary and pleural-based nodules measuring up to 6 mm. These are pathologically indeterminant but low suspicion, and follow-up is recommended as per the Fleischner criteria. 2. There is no airspace consolidation typical for pneumonia. 3. There is mild aneurysmal dilatation of the ascending thoracic aorta which measures up to 4.1 cm. The remainder of the thoracic aorta is normal in caliber. 4. Cardiomegaly and cardiac pacemaker with evidence of pulmonary artery hypertension. 5. Trace right pleural effusion. History of Atrial Fibrillation -rate and rhythm controlled with sotalol and pacemaker -ASA, not on oral anticoagulation Remote hx of LLE DVT s/p rotator cuff surgery continue aspirin History of Aortic Valve Replacement Bioprosthetic Hypertension history -continue amlodipine and sotalol Discharge Instructions Patient can return to work on 04/25/18 with moderate activities Please follow up with: primary care doctor for the lung nodules and other health issues 05/02/2018 9:15 AM Karma Morfin MD Urology, [facility] patient should f/u w Colorectal Surgery upon discharge to determine if need further surgical intervention 07/18/2018 4:00 PM Mario Sen MD Gastroenterology, [facility] Total time spent on discharge = 40 minutes This includes examination of the patient, discharge planning, medication reconciliation, and communication with other providers. Discharge Instructions see above
[2018-04-28 11:42] VITALS: BP 122/84; PULSE 66; TEMP 36.8; O2SAT 95
--- NOTE | 2018-04-28 11:58 | Gastroenterology Progress Note ---
Progress Note Date of Service: Apr 28, 2018 Subjective Pt evaluation today including: conversation w/ patient, physical exam, chart review, lab review, review of inpatient medication list Pt feels well, continued to have some stools and passing flatus, not much abd pain, n/v, tolerated CL diet well. KUB showed some improvement on small bowel loops dilation. Review of Systems Constitutional: No fever, No chills Respiratory: No cough, No shortness of breath Cardiac: No chest pain Abdomen: No pain, No nausea, No vomiting Medications Current Inpatient Medications Medications (Trade) Dose Ordered Sig/Higinio Route Start Time Stop Time Status Last Admin Dose Admin Ioversol (Optiray 320) 125 ml UD PRN IV 04/26/18 15:45 04/30/18 15:44 Acetaminophen (Tylenol Tab) 650 mg Q4H PRN PO 04/26/18 18:30 05/26/18 18:29 Ondansetron HCl (Zofran Inj) 4 mg Q6H PRN IV 04/26/18 18:30 05/26/18 18:29 Polyethylene (Miralax Powder Packet) 17 gm DAILY PO 04/26/18 20:00 05/26/18 19:59 04/28/18 08:45 17 GM Docusate Sodium (coLACE CAP) 100 mg BID PO 04/26/18 21:00 05/26/18 20:59 04/28/18 08:44 100 MG Amlodipine Besylate (Norvasc Tab) 5 mg QAM PO 04/27/18 09:00 05/27/18 08:59 04/28/18 08:44 5 MG Aspirin (Ecotrin Tab) 81 mg QPM PO 04/26/18 21:00 05/26/18 20:59 04/27/18 21:04 81 MG Fish Oil ([place]-3 (Purified Fish Oil) Cap) 1 gm QPM PO 04/26/18 21:00 05/26/18 20:59 04/27/18 21:04 1 GM Metronidazole (Flagyl Tab) 500 mg BID PO 04/26/18 21:00 04/29/18 21:00 04/28/18 08:45 500 MG Sotalol HCl (Betapace Tab) 40 mg BID PO 04/26/18 21:00 05/26/18 20:59 04/28/18 08:44 40 MG Miscellaneous (Iv Fluids Completed) 1 ea PRN PRN N/A 04/26/18 19:00 04/26/19 18:59 Polyethylene (Miralax Powder Packet) 17 gm DAILY PO 04/28/18 09:00 05/28/18 08:59 Ioversol (Optiray 320) 111 ml UD PRN IV 04/27/18 16:45 05/01/18 16:44 Objective Vital Signs Date Time Temp Pulse Resp B/P (MAP) Pulse Ox O2 Delivery O2 Flow Rate FiO2 04/28/18 11:42 36.8 66 18 95 Room Air 04/28/18 08:59 95 Room Air 04/28/18 08:05 36.8 66 18 122/84 (97) 95 Room Air 04/28/18 07:30 Room Air 04/27/18 22:54 36.5 74 16 121/79 (93) 98 Room Air 04/27/18 21:20 Room Air 04/27/18 15:11 36.7 70 18 131/82 (98) 97 Room Air Physical Exam General Appearance: WD/WN, no apparent distress Eyes: normal inspection, PERRL, EOMI Neck: supple, no JVD, trachea midline Respiratory/Chest: normal breath sounds, no respiratory distress, no accessory muscle use Cardiovascular: regular rate, rhythm, no gallop, no murmur Abdomen: normal bowel sounds, non tender, soft Extremities: normal inspection, no pedal edema, no calf tenderness Neurologic/Psych: alert, normal mood/affect, oriented x 3 Skin: normal color, no jaundice, no rash Assessment and Plan Patient is a 58 year old male w hx of UC vs Crohn's disease 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 KUB w improvement on small bowel distension. Blood, urine cultures, Cdiff all negative. Plan - FL diet, advance as tolerated to low fiber/residue diet. 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 Continue VSL 3 once he's DC'd. - He should f/u w Colorectal Surgery in [facility] upon DC to determine if need further surgical intervention. He is also going to f/u w [facility] for bladder ca surgery. - F/U with PCP for pulmonary nodule for f/u CT scan in the future. - OK for DC home from GI standpoint The patient was discharged prior to afternoon rounds. I did discuss the case with . Patient will continue to follow-up with Dr. wood as previously scheduled.
== END 2018-04-28 14:50 | disposition home or self-care (01) ==
LOC: C.EDB 15:11 → C.MSN 18:35 → ENRESERV 19:02
PROVIDERS: ADMIT Family Medicine; ATTEND Hospitalist
DX: K91.850 Pouchitis (principal); C67.9 Malignant neoplasm of bladder, unspecified; R91.8 Other nonspecific abnormal finding of lung field; Z79.82 Long term (current) use of aspirin; Z79.899 Other long term (current) drug therapy; I48.91 Unspecified atrial fibrillation; Z95.0 Presence of cardiac pacemaker; I10 Essential (primary) hypertension; Z86.718 Personal history of other venous thrombosis and embolism; Z95.2 Presence of prosthetic heart valve; Z86.711 Personal history of pulmonary embolism; Z87.891 Personal history of nicotine dependence